=== PATIENT | female | born 1955 | race Caucasian/White ===

== ENCOUNTER 2023-04-08 09:19 | Outpatient (AMB) | payer BC, SELFPAY ==
--- NOTE | 2023-04-08 10:33 | AM.OFFWIN_ITS ---
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) Intake Note: pt is here for c.o nerve pain possible sciatica, and also congestion since last night Patient Tobacco Use Status: Never used Tobacco Allergies ibuprofen [From MOTRIN] Allergy (Mild, Verified 04/08/23 11:07) HAS 1 KIDNEY Medication List - Last Reconciled 04/08/23 by Romana Loera CNP No Known Home Meds Do you need a note to return to daycare/school/sports/work: No HPI HPI Comments History of Present Illness Details 67-year-old female [facility], complaining of upper respiratory congestion, sinus pressure, mild sore throat with post nasal drip, headache and cough x 1 week. She denies fever, chills, recent travel, exposure to sick contact, CP, SOB, abdominal pain, nausea, vomiting or changes in bowels or bladder. She also is c/o left sciatic pain x1 day. She reports left sciatic pain initially started 2 days ago with left posterior leg cramps of thigh and calf and since has localized more towards left hip. She does have hx of herniated cervical disc with anterior cervical discectomy and fusion but denies hx of know osteoarthritis. She does have a scheduled appointment with a new PCP, Jayce Coronado, [place] to establish care on 05/05/23. She denies any recent trauma, fall, or physical exercise that would have caused strained muscle. She does endorse left hip pain is sharp, tender to touch, and radiates down left leg, she denies numbness, burning or tingling to left foot. [facility] History Sensation of pressure in bladder area Social History Patient Tobacco Use Status: Never used Tobacco Review of Systems Const All systems reviewed & are unremarkable except as noted in HPI and below Physical Exam Vital Signs: Last Vital Signs Temp 98.2 F 04/08/23 10:34 Pulse 76 04/08/23 10:34 BP 126/74 04/08/23 10:34 Pulse Ox 98 04/08/23 10:34 Oxygen Delivery Method Room Air 04/08/23 10:34 Const General: healthy appearing, no acute distress and well groomed Nutritional Appearance: average body habitus Orientation/consciousness: patient oriented x3 Limitations: ambulation with walker HEENT Head: Yes normal to inspection, Yes normocephalic and Yes atraumatic Ears: hearing grossly normal bilaterally and TM's normal bilaterally General nose exam: Abnormal mucous membranes and turbinates present erythematous bilateral and Nasal discharge present purulent (yellowish green ) Mouth: moist mucous membranes Throat: Yes posterior oropharynx normal Eyes General: appearance normal, both eyes and all related structures Neck Neck: Yes no meningeal signs Chest Chest palpation & inspection: normal inspection of the chest Resp Effort & Inspection: normal respiratory effort, no cough, no respiratory distress, not tachypneic and other (hoarse ) Auscultation: clear to auscultation bilaterally, no rhonchi and no wheezes Cardio Rate: regular rate Rhythm: regular rhythm Heart sounds: S1 normal heart sound present and S2 normal heart sound present Peripheral pulses: Peripheral pulses 2+ throughout GI Inspection: Yes normal to inspection Palpation (GI): Soft to palpation, nontender and no guarding Auscultation: normal bowel sounds General: Yes no CVA tenderness Back/Spine/Pelvis Back: no CVA tenderness Cervical Spine: normal cervical lordosis and cervical ROM normal Thoracic/Lumbar Spine: thoracic and lumbar spine normal to inspection Pelvis: sciatic notch tenderness on the left Sacroiliac joints: on the left tender to palpation and by passive hyperextension of lower ext Sacrum: no ecchymosis, no erythema and no tenderness Coccyx: no swelling and no tenderness Neuro General: patient oriented x3, moves all extremities, no meningeal signs, no focal motor deficits and deep tendon reflexes 2+ bilaterally Extrem Left lower extremity: normal to inspection, normal capillary refill and hip/thigh (normal inspection to left thigh,) Details: tenderness Location: of the hip Location: laterally and anteriorly and abnormal ROM Details: pain with active ROM and pain with resistance; no swelling, no deformity and no unusual warmth; no cyanosis, no edema and joint enlargement noted Psych Appearance: well kempt Mental Status: mental status grossly normal Speech and movement: Normal speech and movement present Affect: normal affect Results Reviewed Results Reviewed: [facility] [address] [place], [place] [address] XRay Report Signed Patient: Francheska Appiah MR#: [id number] : 1955 Acct:[id number] Age/Sex: 67 / F ADM Date: 04/08/23 Loc: HO.HMGCX Attending Dr: Romana Loera CNP Ordering Physician: Romana Loera CNP Date of Service: 04/08/23 Procedure(s): XR hip LT min 2V Accession Number(s): [id number] cc: Romana Loera CNP; Deonna Wang MD~ EXAMINATION: XR HIP, LEFT , CLINICAL INFORMATION: Pain COMPARISON: None available at the time of this dictation. TECHNIQUE: Frontal and lateral views of the hip acquired. , FINDINGS: There is no evidence of acute fracture or dislocation. There are mild degenerative arthritic changes of the hip evident by sclerotic changes of the acetabular roof and narrowing of the joint space. Symphysis pubis is intact. Large soft tissue calcification at the center of the pelvis most likely calcified uterine fibroid. Adjacent pubic rami are intact. Surrounding soft tissues are unremarkable. XR/XR hip LT min 2V IMPRESSION: 1. Mild degenerative osteoarthritis. 2. No fracture. 3. Large soft tissue calcification at the center of the pelvis most likely calcified uterine fibroid. Assessment & Plan Assessment & Plan (1) Left sciatic nerve pain: Code(s): M54.32 - Sciatica, left side Plan: 67 yo female seen today in office with c/o left sciatic pain that is most prominent in left hip, and radiates down left leg. Left sciatic notch tender to touch. Left hip xray ordered and reviewed with patient, no left hip fracture, mild degenerative osteoarthritis, and large Uterine fibroid, which could be contributing to her left sciatic pain if uterine fibroid is compressing nerves. -- She will f/u with new PCP, Jayce Coronado NP on 05/05/23 for possible referral for Physical therapy, or general surgery 1. Tylenol 1000 mg, orally, every 6 hours as needed for hip pain. 2. 5 % Lidocaine patch, also available [id number] and should be apply to area of maximal tenderness as directed on the outside packaging. 3. Ibuprofen 400 mg, orally with milk or food, every 6 hours as needed for left hip pain 4. Ice to left hip pain twice a day, may alternate w/ heat therapy. Call office, or go to ER for acute worsening of symptoms. (2) Intramural uterine fibroid: Code(s): D25.1 - Intramural leiomyoma of uterus Plan: Xray reveals large uterine fibroid, this could be contributing to her left hip and left sciatic pain if fibroid is compression on nerves. She will f/u with PCP on scheduled apt 05/15/23; may need referral to urologist or general surgery. (3) Acute sinus infection: Code(s): J01.90 - Acute sinusitis, unspecified Qualifiers: Sinusitis location: maxillary Recurrence: non-recurrent Qualified Code(s): J01.00 - Acute maxillary sinusitis, unspecified Plan: 67-year-old female seen today in walk-in clinic for symptoms associated with Sinus infection; upper respiratory congestion, sinus pressure, tenderness, mild sore throat, purulent nasal discharge, headache and cough x 1 week. -- Will treat with Z-pack, 2 tabs po today, followed by 1 tab po qd x 4 days. -- Encouraged to drink plenty of fluids; maintain hydration, and get plenty of rest. -- Over the counter flonase, nasal spray for congestion, and over the counter cold medicine, such as cough drops, and throat lozenges. -- Encouraged to return to office for any worsening or unresolved symptoms. Orders: Orders XR hip LT min 2V 04/08/23 M25.552 - Pain in left hip Medications: New lidocaine 5% leave on most painful area for up to 12 hrs 1 patch topical DAILY 15 days PRN 15 ea 0RF pain, severe M54.32 - Sciatica, left side azithromycin For 250 mg dose pack: take 500 mg today (day 1), then 250 mg for 4 days (days 2-5) PO 6 tabs 0RF J32.9 - Chronic sinusitis, unspecified Coding Level of Care Code Est Pt Level 5 (57819) Diagnoses Left sciatic nerve pain M54.32 Intramural uterine fibroid D25.1 Acute non-recurrent maxillary sinusitis J01.00 Sinusitis location: maxillary Recurrence: non-recurrent Time Spent (min) 55 Comment 30 minutes spent face to face with pt 10 minutes spent coordinating care 15 minutes doc
[2023-04-08 10:34] VITALS: BP 126/74; PULSE 76; TEMP 36.8; O2SAT 98
== END 2023-04-08 11:52 | disposition home or self-care (01) ==
PROVIDERS: PCP Internal Medicine; Visit Provider Nurse Practitioner Acute Care
DX: M54.32 Sciatica, left side (principal); D25.1 Intramural leiomyoma of uterus; J01.00 Acute maxillary sinusitis, unspecified
CPT/HCPCS: 99215

== ENCOUNTER 2023-04-08 11:18 | Outpatient (REF) | payer BC, SELFPAY ==
--- NOTE | ~2023-04-08 | XR_ITS ---
EXAMINATION: XR HIP, LEFT , CLINICAL INFORMATION: Pain COMPARISON: None available at the time of this dictation. TECHNIQUE: Frontal and lateral views of the hip acquired. , FINDINGS: There is no evidence of acute fracture or dislocation. There are mild degenerative arthritic changes of the hip evident by sclerotic changes of the acetabular roof and narrowing of the joint space. Symphysis pubis is intact. Large soft tissue calcification at the center of the pelvis most likely calcified uterine fibroid. Adjacent pubic rami are intact. Surrounding soft tissues are unremarkable. XR/XR hip LT min 2V IMPRESSION: 1. Mild degenerative osteoarthritis. 2. No fracture. 3. Large soft tissue calcification at the center of the pelvis most likely calcified uterine fibroid.
== END 2023-04-08 11:19 | disposition home or self-care (01) ==
LOC: HO.HMGCX 11:18
PROVIDERS: PCP Internal Medicine; Visit Provider Nurse Practitioner Acute Care
DX: M25.552 Pain in left hip (principal)
CPT/HCPCS: 73502

== ENCOUNTER 2023-05-11 14:22 | Outpatient (AMB) | payer BC, SELFPAY ==
[2023-05-11 14:34] VITALS: BP 132/90; PULSE 79; O2SAT 97; BMI 27.1
--- NOTE | 2023-05-11 14:34 | A.OFFPC_ITS ---
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 Intake Note: Pt is here today as a New Patient to est care Allergies ibuprofen [From MOTRIN] Allergy (Mild, Verified 05/11/23 14:51) HAS 1 KIDNEY Medication List - Last Reconciled 05/11/23 by ANGI Ng No Known Home Meds Tobacco use date assessed: 05/11/23 Fall risk assessment: 1 Fall in past year Last assessed Fall Risk: 05/11/23 Dental Screening Dental Screen Date: 05/11/23 Did you have a dental visit in the last 12 months?: No Was dental information given to patient?: No HPI HPI Comments History of Present Illness Details Patient is a 67-year-old female here to establish care. Patient is due for a colonoscopy, which she gets every 5 years. Patient suggested to get colonoscopy performed under propofol, will refer. Patient's last mammogram was 02/09. She has history breast cancer left breast, and subsequent mastectomy. 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 Unable to take ibuprofen because of this. She has a past medical history significant for hyperlipidemia, thyroid nodules, cervical radiculitis, eczema of the hand, urge incontinence. [facility] Medical History (Updated 05/11/23 @ 16:20 by ANGI Ng) BRCA negative Left wrist fracture FH: mastectomy GERD (gastroesophageal reflux disease) Breast cancer Sensation of pressure in bladder area Surgical History (Updated 05/11/23 @ 16:06 by ANGI Ng) Kidney donor H/O mastectomy History of bunionectomy Family History (Updated 05/11/23 @ 14:58 by ANGI Ng) Sister Diabetes Mother Colon cancer Social History Housing: House Patient Tobacco Use Status: Former Tobacco user service: No Current occupational status: employed Cognitive needs: No Hearing needs: No Vision needs: Yes Female Reproductive History Menstrual History of abnormal mammogram: Yes Questionnaire PHQ-9 Over the last 2 weeks, how often have you been bothered by any of the following problems? 1. Little interest or pleasure in doing things: not at all 2. Feeling down, depressed, or hopeless: not at all 3. Trouble falling or staying asleep, or sleeping too much: not at all 4. Feeling tired or having little energy: not at all 5. Poor appetite or overeating: not at all 6. Feeling bad about yourself - or that you are a failure or have let yourself or your family down: not at all 7. Trouble concentrating on things, such as reading the newspaper or watching television: not at all 8. Moving or speaking so slowly that other people could have noticed. Or the opposite - being so fidgety or restless that you have been moving around a lot more than usual: not at all 9. Thoughts that you would be better off or of hurting yourself in some way: not at all Total score: 0 Depression Screening Interpretation: Negative Depression Screening Done: Yes 66933 - PHQ-9 Billing: Yes Source: Developed by Drs. Esdras Ramos, Lisa Hein, Main Simpson and colleagues, with an educational jenn from [employer]. Thrive Questionnaire Date Thrive assessed: 05/11/23 I am a: Patient What is your living situation today?: I have a steady place to live Within the past 12 months, did the food you bought not last and you didn't have the money to get more?: Never true Within the past 12 months, did you worry whether your food would run out before you got money to buy more?: Never true Do you have trouble paying for medicines?: No Do you have trouble getting transportation to medical appointments?: No Do you have trouble paying your heating and electricity bill?: No Do you have trouble taking care of your child, family member or friend?: No Do you have trouble with day-to-day activities such as bathing, preparing meals, shopping, managing finances, etc.?: No Are you currently unemployed and looking for a job?: No Are you interested in more education?: No THRIVE Score: 0 AUDIT C Alcohol Use Questionnaire (AUDIT-C) 1. How often do you have a drink containing alcohol?: 2-3 times a week 2. How many drinks containing alcohol do you have on a typical day when you are drinking?: 1 or 2 3. How often do you have six or more drinks on one occasion?: Never Total Score: 3 ABEL-7 AMB Questionnaire ABEL-7 Date ABEL - 7 assessed: 05/11/23 Feeling nervous, anxious, or on edge: 0 = Not at all Not being able to stop or control worryin = Not at all Worrying too much about different things: 0 = Not at all Trouble relaxin = Not at all Being so restless that it is hard to sit still: 0 = Not at all Becoming easily annoyed or irritable: 0 = Not at all Feeling afraid as if something awful might happen: 0 = Not at all Total ABEL-7 score (0-4 normal; 5-9 mild; 10-14 moderate; 15-21 severe): 0 Source: Developed by Drs. Esdras Ramos, Lisa Hein, Main Simpson and colleagues, with an educational jenn from [employer]. ABEL-7 Assessment Billing ABEL-7 Assessment Tool: ABEL-7 Assessment 82502 Review of Systems Const Details: Constitutional : No Weight loss, No Fever, No Chills, No Fatigue, No Malaise Cardiovascular : No Chest Pain, No SOB, No Dyspnea on Exertion, No Orthopnea, No Edema, No Palpitations Respiratory : No Cough, No Sputum, No Wheezing Gastrointestinal : No Nausea, No Vomiting, No Diarrhea, No Constipation, No abdominal Pain, No Hematochezia, No Melena, Admits occasion right sided flank pain. Genitourinary : Admits urge incontience which has gotten worse over the past year. Admits to feeling pressure in bladder. Musculoskeletal : Admits intermittent cervical pain. Skin : No Skin Lesions, No rash Neuro : Admits occasional tingling down right arm. Psych : No Anxiety/Panic, No Depression Heme/Lymph: No Bruising, No Bleeding,No Lymphadenopathy Endocrine : No Polyuria, No Polydipsia All other systems reviewed and are negative Physical exam (Primary Care) Vital Signs: Last Vital Signs Pulse 79 05/11/23 14:34 BP 132/90 H 05/11/23 14:34 Pulse Ox 97 05/11/23 14:34 Oxygen Delivery Method Room Air 05/11/23 14:34 Care Plan Goal for BP management: Patient will take blood pressure measurements at home. BMI result Body Mass Index 27.1 Tobacco/Smoking Status: Tobacco use Status Tobacco use date assessed 05/11/23 05/11/23 14:40 Patient Tobacco Use Status Former Tobacco user 05/11/23 14:40 PHQ-9: PHQ-9 Score PHQ-9: Total score 0 05/11/23 16:11 Depression Screening Interpretation: Negative Thrive Assessment: Date of Thrive Assessment Date Thrive assessed 05/11/23 05/11/23 14:40 Const Other: Appearance: Alert.? Oriented X3.? No acute distress.? Neck: Normal inspection.? Neck supple.? CVS: Normal heart rate and rhythm.? Pulses normal.? Respiratory: No respiratory distress.? Breath sounds normal.? Abdomen: Soft and nontender.? Back: No midline tenderness, no C-spine tenderness, full range of motion, no CVA tenderness bilaterally Neuro: Oriented X 3.? No motor deficit.? No sensory deficit. CN 2-12 intact Assessment and Plan Assessment & Plan (1) Cervical disc disorder: Comment: Will obtain x-ray. Will refer based on results. Patient states she has had good outcomes with steroid injections. Code(s): M50.90 - Cervical disc disorder, unspecified, unspecified cervical region (2) Incontinence: Comment: Patient states that she has developed increasing urge incontinence. Feels like pressure on her bladder. Will obtain ultrasound refer to urology. Code(s): R32 - Unspecified urinary incontinence Qualifiers: Incontinence type: urinary Urinary Incontinence type: unspecified incontinence Qualified Code(s): R32 - Unspecified urinary incontinence (3) Abdominal pain: Comment: Patient has intermittent right flank pain. Will order labs lipase, amylase, ESR. Pain increases with movement. Will order renal ultrasound. Code(s): R10.9 - Unspecified abdominal pain Qualifiers: Abdominal location: unspecified location Qualified Code(s): R10.9 - Unspecified abdominal pain Plan: Take your medications as prescribed. If you were prescribed antibiotics today, it is important that you take your medication to their entirety, do not skip any doses, do not finish them early. Follow-up with your primary care provider this week. Return to the emergency department with new or worsening symptoms. Such as fevers, chills, chest pain, shortness of breath, nausea, vomiting, dizziness, headache, vision changes, lethargy In case of emergency call 911 Plan Patient will follow-up in 4 weeks of physical exam. Orders: Orders XR cervical spine 2V Today Comprehensive Met. Panel Today Z91.89 - Other specified personal risk factors, not elsewhere classified Amylase Today R10.9 - Unspecified abdominal pain Vitamin D 25-OH (D2 and D3) Today Z13.21 - Encounter for screening for nutritional disorder Vitamin B12 Today Z13.21 - Encounter for screening for nutritional disorder TSH reflex Free T4 Today Z13.29 - Encounter for screening for other suspected endocrine disorder Lipid Panel Today R10.9 - Unspecified abdominal pain Erythrocyte Sedimentation Rate Today R10.9 - Unspecified abdominal pain XR DEXA axial skeleton Today Z78.0 - Asymptomatic menopausal state Complete Blood Count Auto Diff Today Z13.0 - Encounter for screening for diseases of the blood and blood-forming organs and certain disorders involving the immune mechanism Lipase Today R10.9 - Unspecified abdominal pain Vitamin B6 Today Z13.21 - Encounter for screening for nutritional disorder UA CC w/rflx Micro + Cult Today R32 - Unspecified urinary incontinence US bladder Today R32 - Unspecified urinary incontinence Hemoglobin A1c Today R73.03 - Prediabetes US renal RT Today R10.9 - Unspecified abdominal pain Referrals Urology Referral R32 - Unspecified urinary incontinence Coding Level of Care Code New Pt Level 3 (59388) Diagnoses Cervical disc disorder M50.90 Urinary incontinence, unspecified type R32 Incontinence type: urinary Urinary Incontinence type: unspecified incontinence Abdominal pain, unspecified abdominal location R10.9 Abdominal location: unspecified location Additional Codes ABEL-7 Assessment Billing - ABEL-7 Assessment Tool: ABEL-7 Assessment 13713 ([id number]) Time Spent (min) 35
== END 2023-05-11 15:36 | disposition home or self-care (01) ==
PROVIDERS: PCP Internal Medicine; Visit Provider Nurse Practitioner Primary Care
DX: M50.90 Cervical disc disorder, unspecified, unspecified cervical region (principal); R32 Unspecified urinary incontinence; R10.9 Unspecified abdominal pain
CPT/HCPCS: 99203; 99213

== ENCOUNTER 2023-05-30 07:03 | Outpatient (REF) | payer BC, SELFPAY ==
--- NOTE | ~2023-05-30 | XR_ITS ---
EXAMINATION: XR CERVICAL SPINE CLINICAL INFORMATION: Cervicalgia COMPARISON: None available. TECHNIQUE: 3 views of the cervical spine were obtained. FINDINGS: The density odontoid is obscured on the open-mouth view. The patient has leftward tilt of the head on the AP view. There is straightening of the usual cervical lordosis on the lateral view which may be due to muscle spasm or due to patient positioning. No fracture. Prevertebral soft tissues are within normal limits. There is mild disc space narrowing with marginal osteophyte formation at C4-C5 and C5-C6. There is fusion of C6-C7 with evidence of anterior plate. There is mild anterolisthesis of C3 respect to C4. There is mild retrolisthesis of C5 with respect to C6. XR/XR cervical spine 3V IMPRESSION: 1. Fusion of C6-C7 with anterior plate. 2. Multilevel degenerative disc disease. 3. Straightening of the usual cervical lordosis which may be due to muscle spasm or due to patient positioning.. The C6-C7 fusion may also contribute to the straightening of the cervical spine.
--- NOTE | ~2023-05-30 | US_ITS ---
EXAMINATION: US RETROPERITONEAL COMPLETE (RENAL) CLINICAL INFORMATION: Unspecified urinary incontinence. COMPARISON: Ultrasound abdomen complete 01/13/2018. TECHNIQUE: Real-time imaging of the solitary right kidney and bladder. FINDINGS: RIGHT KIDNEY: 11.0 x 5.4 x 5.0 cm (SAG x AP x TRV). The kidney is normal in size, contour, and echogenicity. Renal cortical thickness is normal. No renal calculi or hydronephrosis. 8 mm simple cyst in the medial kidney. No follow-up imaging is recommended. LEFT KIDNEY: Surgically removed (donated). BLADDER: Well distended and normal. Right ureteral jet is demonstrated; left is not. Prevoid bladder volume is 180 mL. There is no postvoid residual. ADDITIONAL FINDINGS: 11.3 x 9.6 x 5.8 cm simple appearing cystic lesion superior to the bladder of undetermined origin. US/US retroperitoneal comp IMPRESSION: The urinary bladder appears normal. No hydronephrosis. 11.3 cm simple appearing cystic lesion superior to the bladder of undetermined origin. This impresses on the bladder and may relate to the symptoms of urinary incontinence. Recommend further evaluation with pelvic ultrasound and/or CT of the abdomen and pelvis with intravenous contrast.
--- NOTE | ~2023-05-30 | MM_ITS ---
EXAMINATION: BONE DENSITOMETRY CLINICAL INDICATION: Right flank pain. Postmenopausal. COMPARISON: This is the patient's baseline examination. TECHNIQUE: Using a [employer] DXA System (software version: 13.1) manufactured by [employer], dual-energy x-ray absorptiometry was performed of the lumbar spine and left hip. The images are of good technical quality. Summary results are attached. FINDINGS: LEFT FEMUR, NECK: BMD 0.720 g/cm2, Z-score -0.9, T-score -2.3, osteopenia. LEFT FEMUR, TOTAL: BMD 0.740 g/cm2, Z-score -1.0, T-score -2.1, osteopenia. AP SPINE L1-L4: BMD 0.908 g/cm2, Z-score -0.8, T-score -2.3, osteopenia. IDENTIFIED RISK FACTORS: Menopause, history of fracture (adult). HISTORY OF FRACTURE: Wrist. MEDICATIONS: None listed. MM/XR DEXA axial skeleton IMPRESSION: 1. DIAGNOSIS: Osteopenia based on the lowest T-score value of -2.3 in the lumbar spine and femoral neck applying World Health Organization criteria. 2. 10-YEAR FRACTURE RISK PREDICTION, FRAX: Major osteoporotic fracture (clinical spine, forearm, hip or shoulder) 19.8%. Hip fracture 3.8%. 3. Treatment Recommendations: NOF guidelines recommend consideration for treatment in postmenopausal women and men age 50 and older presenting with the following: -A hip or vertebral (clinical or morphometric) fracture. -T-score less than or equal to -2.5 at the femoral neck or spine after appropriate evaluation to exclude secondary causes. -Low bone mass at the hip or spine and a 10-year fracture probability by FRAX of greater than or equal to 3% for hip fracture or greater than or equal to 20% for major osteoporotic fracture based on the [place] adapted WHO algorithm. 4. Other Recommendations: All treatment decisions require clinical judgment and consideration of individual patient factors, including patient preferences, comorbidities, previous drug use, risk factors not captured in the FRAX model (e.g. frailty, falls, vitamin D deficiency, increased bone turnover, interval significant decline in bone density) and possible under or overestimation of fracture risk by FRAX. Additional medical evaluation for secondary cause of low bone mineral density may be appropriate. FUTURE SCAN RECOMMENDATION: People with diagnosed cases of osteoporosis or at high risk for fracture should have regular bone mineral density tests. For patients eligible for Medicare, routine testing is allowed once every 2 years. The testing frequency can be increased to one year for patients who have rapidly progressing disease, those who are receiving or discontinuing medical therapy to restore bone mass, or have additional risk factors.
[2023-05-30 11:13] LABS: Appearance Urine Clear; Color Urine Yellow; Glucose Urine UA Negative (Negative); Leukocyte Esterase Urine Trace (Negative); Nitrite Urine Negative (Negative); PH 6.5 (5.0-9.0); Specific Gravity - Urine 1.025 (1.005-1.025); UMIC TRIGGER UACC YES; Urine Blood Negative (Negative); Urine Ketones Negative (Negative); Urine Protein Negative (Neg-Trace)
[2023-05-30 11:17] LABS: Bacteria Urine Trace (None Seen); Hyaline Casts Urine 0-2 /LPF (0-2); RBC Urine 0-2 /HPF (0-2); WBC Urine 0-5 /HPF (0-5)
[2023-05-30 11:28] LABS: MANUAL DIFF FLAG NO
[2023-05-30 11:31] LABS: Basophils Percent Auto 0.4 % (0-2); Eosinophils Absolute Auto 0.1 X10*3/uL (0.0-0.4); Eosinophils Percent Auto 2.8 % (0-4); Hematocrit 42.5 % (37.0-47.0); Hemoglobin 13.8 g/dl (12.0-16.0); Imm Gran Abs Auto 0.02 X10*3/uL (0.00-0.03); Imm Gran Pct Auto 0.4 % (0.0-0.4); Lymphocytes Absolute Auto 1.4 X10*3/uL (1.2-4.9); Lymphocytes Percent Auto 27.7 % (20-40); Mean Corpuscular HGB Conc 32.5 g/dl (31.0-35.0); Mean Corpuscular Hemoglobin 29.3 pg (27.0-33.0); Mean Corpuscular Volume 90.2 fL (80.0-98.0); Mean Platelet Volume 11.5 fL (9.4-12.3); Monocytes Absolute Auto 0.5 X10*3/uL (0.1-1.2); Monocytes Percent Auto 9.6 % (2-11); Neutrophils Percent Auto 59.1 % (45-73); Platelet Count 243 X10*3/uL (160-400); Red Blood Count 4.71 X10*6/uL (4.20-5.50); Red Cell Distribution Width 13.2 % (11.0-16.0)
[2023-05-30 11:44] LABS: Estimated Average Glucose 111 mg/dL; Hemoglobin A1c % 5.5 % (<6.0)
[2023-05-30 11:48] LABS: Alanine Aminotransferase 25 U/L (0-31); Albumin Level 4.1 g/dL (3.5-5.0); Alkaline Phosphatase 101 U/L (39-117); Amylase 32 U/L (28-100); Anion Gap 12 (12-20); Aspartate Amino Transferase 20 U/L (5-31); Bilirubin Total 0.7 mg/dL (0.0-1.0); Blood Urea Nitrogen 14 mg/dL (9-16); Calcium 9.1 mg/dL (8.4-10.2); Carbon Dioxide 25 mmol/L (22-29); Chloride 109 mmol/L (96-108); Cholesterol 240 mg/dL (<200); Estimated Glomerular Filt Rate > 60; Glucose Random 110 mg/dL (60-115); HDL Cholesterol 50 mg/dL (>40); LDL Cholesterol Calculated 154 mg/dL (<100); Lipase 17 U/L (8-78); Potassium 4.2 mmol/L (3.3-5.1); Sodium 142 mmol/L (135-145); Total Protein 7.4 g/dL (6.5-8.0); Triglycerides 183 mg/dL (<150)
[2023-05-30 12:09] LABS: TSH reflex Free T4 1.06 uIU/mL (0.32-4.0)
[2023-05-30 12:12] LABS: Vitamin B12 221 pg/mL (200-900)
[2023-05-30 12:15] LABS: Erythrocyte Sedimentation Rate 18 MM/HR (0-20)
[2023-06-03 13:52] LABS: Vitamin B6 5.6 ng/mL (2.1-21.7)
[2023-06-03 14:18] LABS: Vitamin D 25-OH, D2 <4 ng/mL; Vitamin D 25-OH, D3 13 ng/mL; Vitamin D 25-OH, Total 13 ng/mL (30-100)
== END 2023-05-30 07:04 | disposition home or self-care (01) ==
LOC: HO.US 07:03
PROVIDERS: PCP Nurse Practitioner Primary Care; Visit Provider Nurse Practitioner Primary Care
DX: Z13.820 Encounter for screening for osteoporosis (principal); Z13.21 Encounter for screening for nutritional disorder; Z13.29 Encounter for screening for other suspected endocrine disorder; Z13.0 Encounter for screening for diseases of the blood and blood-forming organs and certain disorders involving the immune mechanism; Z13.6 Encounter for screening for cardiovascular disorders; Z78.0 Asymptomatic menopausal state; R10.9 Unspecified abdominal pain; Z91.89 Other specified personal risk factors, not elsewhere classified; R32 Unspecified urinary incontinence; M54.2 Cervicalgia
CPT/HCPCS: 36415; 72040; 76770; 77080; 80053; 80061; 81001; 82150; 82306; 82607; 83036; 83690; 84207; 84443; 85025; 85652

== ENCOUNTER 2023-06-15 09:47 | Outpatient (AMB) | payer BC, SELFPAY ==
[2023-06-15 09:53] VITALS: BP 128/82; PULSE 83; O2SAT 97; BMI 27.7
--- NOTE | 2023-06-15 09:53 | A.OFFPC_ITS ---
Vital Signs 06/15/23 09:53 Height 5 ft 3 in Weight 156 lb 6 oz BMI 27.7 BP 128/82 Blood Pressure Location Lt brachial Position Sitting Pulse 83 Pulse Source Pulse Oximeter Pulse Oximetry (%) 97 Oxygen Delivery Method Room Air Intake Visit Reasons: PE Intake Note: Pt is here for her Annual PE Allergies ibuprofen [From MOTRIN] Allergy (Mild, Verified 06/15/23 10:38) HAS 1 KIDNEY Medication List - Last Reconciled 06/15/23 by ANGI Ng omeprazole 20 mg PO DAILY PRN Tobacco use date assessed: 06/15/23 Fall risk assessment: 1 Fall in past year Last assessed Fall Risk: 06/15/23 Dental Screening Dental Screen Date: 06/15/23 Did you have a dental visit in the last 12 months?: No Did you have a dental problem in the last 6 months where you did not have access to dental care?: No Was dental information given to patient?: No HPI HPI Comments History of Present Illness Details Patient is a 67-year-old female here today for physical exam. Patient is due for colonoscopy, referral is in. Patient recently had ultrasound of bladder for incontinence, patient has upcoming appointment with Urology in 1 month. Patient is due for Pap smear, will refer to OBGYN. Patient is due for Prevnar 20 vaccine, will give in office today. Patient recent bone density scan demonstrated osteopenia. Patient has been educated on the importance of limiting the use of PPI for calcium absorption. Patient was vitamin-D deficient on previous lab draw, been educated to start vitamin D3 2000 units per day for the next 3 months, will redraw. Patient has elevated cholesterol, does not want to start medication at this time would like to try intervention with omega-3, improved diet, and exercise. Patient has been instructed to limit alcohol intake. Will redrawn lipids in 3 months. PFSH Medical History BRCA negative Left wrist fracture FH: mastectomy GERD (gastroesophageal reflux disease) Breast cancer Sensation of pressure in bladder area Surgical History Kidney donor H/O mastectomy History of bunionectomy Family History Sister Diabetes Mother Colon cancer Social History Housing: House Patient Tobacco Use Status: Former Tobacco user e-Cigarette/Vaping Use: Never Used service: No Current occupational status: employed Cognitive needs: No Hearing needs: No Vision needs: Yes Questionnaire Thrive Questionnaire Date Thrive assessed: 05/11/23 ABEL-7 AMB Questionnaire ABEL-7 Date ABEL - 7 assessed: 05/11/23 Source: Developed by Drs. Esdras Ramos, Lisa Hein, Main Simpson and colleagues, with an educational jenn from [employer]. Review of Systems Const All systems reviewed & are unremarkable except as noted in HPI and below Card Denies chest pain and Denies dyspnea Resp Denies dyspnea Musc Reports back pain (Cervical area.) Skin/Breast Reports other (Nevi/Scap that does not seem to heal. ) Physical exam (Primary Care) Vital Signs: Last Vital Signs Pulse 83 06/15/23 09:53 BP 128/82 06/15/23 09:53 Pulse Ox 97 06/15/23 09:53 Oxygen Delivery Method Room Air 06/15/23 09:53 Care Plan Goal for BP management: Vital signs reviewed stable Next steps: Patient will continue to take medication at home. BMI result Body Mass Index 27.7 Tobacco/Smoking Status: Tobacco use Status Tobacco use date assessed 06/15/23 06/15/23 09:59 Patient Tobacco Use Status Former Tobacco user 06/15/23 09:56 e-Cigarette/Vaping Use Never Used 06/15/23 09:59 Thrive Assessment: Date of Thrive Assessment Date Thrive assessed 05/11/23 06/15/23 09:56 Const General: cooperative and no acute distress Orientation/consciousness: patient oriented x3 Limitations: no limitations HENMT Head: Yes normal to inspection Ears: TM's normal bilaterally General nose exam: Normal external nose present Mouth: Normal oral and palatal mucosa present Teeth and gingiva: dentures Throat: Yes uvula midline Eyes General: appearance normal, both eyes and all related structures Conjunctivae: conjunctivae normal Sclerae: sclerae normal Corneas: corneas normal Pupils: Equal, round and reactive pupils present EOM: EOMs intact bilaterally Direct Ophthalmoscopy: normal light reflex Neck Neck: Yes normal visual inspection, Yes full ROM and Yes no lymphadenopathy Thyroid: Thyroid normal Carotids: normal carotid upstroke Lymphatic: no lymphadenopathy noted Resp Auscultation: clear to auscultation bilaterally Cardio Rate: regular rate Rhythm: regular rhythm Heart sounds: S1 normal heart sound present and S2 normal heart sound present Peripheral pulses: Peripheral pulses 2+ throughout GI Inspection: Yes normal to inspection Auscultation: normal bowel sounds General: Yes no CVA tenderness OB/external & speculum: Deferred OB/external & speculum exam Back/Spine/Pelvis Back: no CVA tenderness Cervical Spine: cervical muscular tenderness Thoracic/Lumbar Spine: thoracic and lumbar spine normal to inspection Skin General skin exam: other (Small Nevi right shoulder. Regular borders. Slight scabbing.) Hair: normal Neuro General: patient oriented x3 and CN's II-XI intact bilaterally Cranial nerves: Yes Equal, round and reactive pupils present Cognition (Neuro): normal cognition Gait exam (Neuro): Normal gait present Motor exam (neuro): 5/5 motor strength present throughout Extrem General: Yes normal to inspection Psych Thought process: Normal thought process present Thought content: Normal thought content present Insight: Good insight present (Psych) Judgement: Good judgement present (Psych) Immunizations pneumoc 20-jamia conj-dip cr(PF) 0.5 mL IM syringe Performing Provider: ANGI Ng Performing Location: [facility] Administered by: Mireille Street CMA on 06/15/23 10:41 Dose Route Admin Location Dispensed Lot Number Expiration Date NDC High Pressure Kettle Operator 0.5 mL IM Left Deltoid 0.5 mL [id number] 06/06/24 1543-3433-98 Fliptop/Oculogica VIS Given Date VIS Provided VIS Publication Date 06/15/23 Single Vaccine 21 Eligibility Eligibility Date Funding Source Not VFC Eligible 06/15/23 Private Results Reviewed Results Reviewed: Sodium 142 135-145 mmol/L Potassium 4.2 3.3-5.1 mmol/L CL 109 H 96-108 mmol/L CO2 25 22-29 mmol/L Gap 12 12-20 BUN 14 9-16 mg/dL Creat 0.73 0.5-1.4 mg/dL EGFR > 60 NOTE: For -[place] individuals, multiply the result by 1.210. Chronic Kidney Disease: Estimated GFR < 60 mL/min/1.73m2 Severe Kidney Disease: Estimated GFR < 15 mL/min/1.73m2 Glucose, Random 110 60-115 mg/dL CA 9.1 8.4-10.2 mg/dL Total Bili 0.7 0.0-1.0 mg/dL AST (GOT) 20 5-31 U/L ALT (GPT) 25 0-31 U/L Protein, Total 7.4 6.5-8.0 g/dL Alb 4.1 3.5-5.0 g/dL Triglyceride 183 H <150 mg/dL Desirable Triglyceride: less than 150 mg/dL Borderline High Triglyceride 150-199 mg/dL High Triglyceride: 200-499 mg/dL Very High Triglyceride: greater than or equal to 5OO mg/dL Cholesterol 240 H <200 mg/dL Desirable Cholesterol: less than 200 mg/dL Borderline High Cholesterol: 200-239 mg/dL High Cholesterol: greater than 239 mg/dL LDL Calculated 154 H <100 mg/dL Desirable LDL: less than 100 mg/dL Near Optimal/Above Optimal LDL: 110-129 mg/dL Borderline High LDL: 130-159 mg/dL High LDL: 160-189 mg/dL Very High LDL: greater than or equal to 190 mg/dL HDL 50 >40 mg/dL Desirable HDL: greater than 40 mg/dL Note: This HDL assay may give artificially low results in patients with liver disease. Alk Phos 101 39-117 U/L Marlene 32 28-100 U/L Lipase 17 8-78 U/L TSH 1.06 0.32-4.0 uIU/mL Assessment and Plan Assessment & Plan (1) Encounter for routine adult physical exam with abnormal findings: Comment: Will redraw labs 3 months. Patient has Prevnar 20 immunization in office today. Patient has referral for colonoscopy, OBGYN. Code(s): Z00.01 - Encounter for general adult medical examination with abnormal findings (2) Atypical nevi: Comment: Will refer to Dermatology. Patient instructed to use [id number] hydrocortisone. Code(s): D22.9 - Melanocytic nevi, unspecified (3) Hyperlipidemia: Comment: Patient declined medication at this time. Will try to improve cholesterol with diet, exercise. Code(s): E78.5 - Hyperlipidemia, unspecified Qualifiers: Hyperlipidemia type: unspecified Qualified Code(s): E78.5 - Hyperlipidemia, unspecified (4) Vitamin D deficiency: Comment: Patient instructed to take vitamin D3, 2000 units per day for the next 3 months will redraw. Code(s): E55.9 - Vitamin D deficiency, unspecified Plan: Take your medications as prescribed. If you were prescribed antibiotics today, it is important that you take your medication to their entirety, do not skip any doses, do not finish them early. Follow-up with your primary care provider this week. Return to the emergency department with new or worsening symptoms. Such as fevers, chills, chest pain, shortness of breath, nausea, vomiting, dizziness, headache, vision changes, lethargy In case of emergency call 911 (5) Osteopenia: Comment: Patient instructed to to continue eating foods high in calcium, take vitamin D3 supplement, exercise. Limit use of PPI. Code(s): M85.80 - Other specified disorders of bone density and structure, unspecified site Qualifiers: Osteopenia location: unspecified Qualified Code(s): M85.80 - Other specified disorders of bone density and structure, unspecified site Plan Follow-up in 3-4 months Orders: Orders MM tomosynthesis screening BI 5 Months Z12.31 - Encounter for screening mammogram for malignant neoplasm of breast Complete Blood Count Auto Diff 3 Months Z13.0 - Encounter for screening for diseases of the blood and blood-forming organs and certain disorders involving the immune mechanism Comprehensive Met. Panel 3 Months Z91.89 - Other specified personal risk factors, not elsewhere classified Lipid Panel 3 Months Z13.220 - Encounter for screening for lipoid disorders Vitamin D 25-OH (D2 and D3) 3 Months Z13.21 - Encounter for screening for nutritional disorder Pneumococcal 20 Immunization Today Z23 - Encounter for immunization UA CC w/rflx Micro + Cult 3 Months Z13.89 - Encounter for screening for other disorder Referrals Gastroenterology Referral Z12.11 - Encounter for screening for malignant neoplasm of colon FINANCIAL ASSISTANCE SPECIALIST Referral Z12.4 - Encounter for screening for malignant neoplasm of cervix Dermatology Referral D22.9 - Melanocytic nevi, unspecified Coding Level of Care Code Est Pt Prev Care >65y([id number]) Diagnoses Encounter for routine adult physical exam with abnormal findings Z00.01 Atypical nevi D22.9 Hyperlipidemia, unspecified hyperlipidemia type E78.5 Hyperlipidemia type: unspecified Vitamin D deficiency E55.9 Osteopenia, unspecified location M85.80 Osteopenia location: unspecified Time Spent (min) 32
== END 2023-06-15 11:03 | disposition home or self-care (01) ==
PROVIDERS: PCP Nurse Practitioner Primary Care; Visit Provider Nurse Practitioner Primary Care
DX: Z00.00 Encounter for general adult medical examination without abnormal findings (principal); D22.9 Melanocytic nevi, unspecified; E78.5 Hyperlipidemia, unspecified; E55.9 Vitamin D deficiency, unspecified; M85.80 Other specified disorders of bone density and structure, unspecified site
CPT/HCPCS: 90471; 90677; 99397

== ENCOUNTER 2023-07-13 13:00 | Outpatient (REF) | payer BC, SELFPAY ==
[2023-07-13 16:47] LABS: Urine Cytology See Pathology rpt
== END 2023-07-13 13:01 | disposition home or self-care (01) ==
LOC: HO.LAB 13:00
PROVIDERS: PCP Nurse Practitioner Primary Care; Visit Provider Nurse Practitioner Family
DX: R31.29 Other microscopic hematuria (principal); R32 Unspecified urinary incontinence; N32.89 Other specified disorders of bladder; R39.15 Urgency of urination; R35.0 Frequency of micturition; R39.9 Unspecified symptoms and signs involving the genitourinary system; R33.9 Retention of urine, unspecified; F17.200 Nicotine dependence, unspecified, uncomplicated; Z90.5 Acquired absence of kidney
CPT/HCPCS: 51798; 81003; 88112

== ENCOUNTER 2023-07-13 13:00 | Outpatient (AMB) | payer BC, SELFPAY ==
--- NOTE | 2023-07-13 13:06 | A.OFFVIS_ITS ---
Intake Visit Reasons: urinary incontinence(set) Intake Note: New patient is present for Cyst in Bladder/Urinary Incontinence Has never tried any medications for Bladder Antibiotic Allergies: None Blood Thinners: None PVR: 624 Patient states that she has discomfort in her bladder from urinary cyst she was told she had from previous imaging she had done here She states that she feels discomfort in her bladder and states that due to cyst it is causing her urinary issues. Allergies ibuprofen [From MOTRIN] Allergy (Mild, Verified 07/13/23 17:32) HAS 1 KIDNEY Medication List - Last Reconciled 07/13/23 by ANGI Jordan- omeprazole 20 mg PO DAILY PRN HPI Comments Details: Francheska is a very pleasant 67-year-old female patient of Dr. Coronado. She has a past medical history of GERD and breast cancer. She presents to the office today as a new patient for cystic lesion noted in her bladder on recent imaging. In discussion with the patient today she reports having followed up with her PCP at which time she was discussing lower urinary symptoms she had been experiencing at which time a retroperitoneal ultrasound was ordered for further assessment evaluation. These results were reviewed with the patient today. Right kidney is normal in size, contour, and echogenicity. No renal calculi or hydronephrosis noted. 8 mm simple cyst in the medial kidney that requires no follow-up imaging per radiology report. The patient does not have a left kidney as this was surgically removed and donated to her son. The bladder is well distended and normal. Right ureteral jets are demonstrated. Pre void bladder volume is approximately 180 mL. There is no postvoid residual. 11.3 x 9.6 x 5.8 cm simple appearing cystic lesion superior to the bladder is noted. When asked she reports urinary frequency, urinary urgency, and bladder pressure. She otherwise denies hematuria, dysuria, foul smelling urine, changes to ur inary stream, flank pain, fever, and or chills. In office urinalysis results reviewed with the patient today. Microscopic hematuria noted. When asked she does report a previous smoking history of approximately 40+ years however quit 5 years ago. She otherwise denies any previous workplace chemical exposure. PVR 624 mLs. Discussed at length potential causes and affects of incomplete bladder emptying/urinary retention. It does appear patient did empty her bladder at time of ultrasound however PVR increased at today's visit. She discusses at length feeling PVR is measuring cystic lesion and not urine in the bladder. Discussed performing intermittent catheterization or in office catheterization to further assess given patient with a history of solitary kidney however patient declines at this time. BUN and creatinine tredned and as noted below: BUN:01/04 11, 06/10 14 Creatinine: 01/04 0.72, 06/10 0.73 PFSH Medical History BRCA negative Left wrist fracture FH: mastectomy GERD (gastroesophageal reflux disease) Breast cancer Sensation of pressure in bladder area Surgical History Kidney donor H/O mastectomy History of bunionectomy Family History Sister Diabetes Mother Colon cancer Social History Housing: House Patient Tobacco Use Status: Former Tobacco user e-Cigarette/Vaping Use: Never Used service: No Current occupational status: employed Cognitive needs: No Hearing needs: No Vision needs: Yes Review of Systems Const All systems reviewed & are unremarkable except as noted in HPI and below Physical Exam Const General: cooperative, healthy appearing, comfortable, no acute distress, well developed, alert and awake Orientation/consciousness: patient oriented x3 Limitations: no limitations HEENT Head: Yes normal to inspection, Yes normocephalic and Yes atraumatic Ears: hearing grossly normal bilaterally Eyes General: appearance normal, both eyes and all related structures Neck Neck: Yes normal visual inspection and Yes trachea midline Chest Chest palpation & inspection: normal inspection of the chest Resp Effort & Inspection: normal respiratory effort and able to speak in complete sentences Cardio Rate: regular rate GI Inspection: Yes normal to inspection General: Yes no CVA tenderness Back/Spine/Pelvis Back: no CVA tenderness Skin General skin exam: no rashes or lesions noted Neuro General: patient oriented x3 Extrem General: Yes normal to inspection Psych Appearance: grossly normal and well kempt Mental Status: mental status grossly normal Speech and movement: Normal speech and movement present and Clear speech present Affect: normal affect Attitude: cooperative Thought process: Normal thought process present Thought content: Normal thought content present Insight: Fair insight present (Psych) Judgement: Fair judgement present (Psych) Office Procedures Post Void Residual Post Residual Void Post Void Residual (PVR): 624 [id number] Void Residual by ultrasound Results AMB Urinalysis, Automated UA Leukoctes 0 Shahriar/uL Last Edit by Kathleen Chacko, A on 07/13/23 13:15 UA Nitrite Negative Last Edit by Kathleen Chacko, A on 07/13/23 13:15 UA Urobilinogen 0.2 mg/dL Last Edit by Kathleen Chacko, A on 07/13/23 13:1 5 UA Protein 0 mg/dL Last Edit by Kathleen Chacko, A on 07/13/23 13:15 UA pH 6.0 Last Edit by Kathleen Chacko, A on 07/13/23 13:15 UA Blood 10 Barrie/uL Last Edit by Kathleen Chacko, A on 07/13/23 13:15 UA Specific [place] 1.020 Last Edit by Kathleen Chacko, A on 07/13/23 13: 15 UA Ketone Negative Last Edit by Kathleen Chacko, A on 07/13/23 13:15 UA Bilirubin 0 mg/dL Last Edit by Kathleen Chacko, A on 07/13/23 13:15 UA Glucose 0 mg/dL Last Edit by Kathleen Chacko, A on 07/13/23 13:15 Results Reviewed Results Reviewed: Laboratory Last Values Urine pH (Auto) 6.0 07/13/23 13:13 Specific [place] (Auto) 1.020 07/13/23 13:13 Urine Protein (Auto) 0 mg/dL 07/13/23 13:13 Glucose (UA)(Auto) 0 mg/dL 07/13/23 13:13 Urine Ketones (Auto) Negative 07/13/23 13:13 Urine Blood (Auto) 10 Barrie/uL 07/13/23 13:13 Urine Nitrite (Auto) Negative 07/13/23 13:13 Urine Bilirubin (Auto) 0 mg/dL 07/13/23 13:13 Urine Urobilinogen (Auto) 0.2 mg/dL 07/13/23 13:13 Leukocyte Esterase (Auto) 0 Shahriar/uL 07/13/23 13:13 Date of Service: 05/30/23 EXAMINATION: US RETROPERITONEAL COMPLETE (RENAL) FINDINGS: RIGHT KIDNEY: 11.0 x 5.4 x 5.0 cm (SAG x AP x TRV). The kidney is normal in size, contour, and echogenicity. Renal cortical thickness is normal. No renal calculi or hydronephrosis. 8 mm simple cyst in the medial kidney. No follow-up imaging is recommended. LEFT KIDNEY: Surgically removed (donated). BLADDER: Well distended and normal. Right ureteral jet is demonstrated; left is not. Prevoid bladder volume is 180 mL. There is no postvoid residual. ADDITIONAL FINDINGS: 11.3 x 9.6 x 5.8 cm simple appearing cystic lesion superior to the bladder of undetermined origin. IMPRESSION: The urinary bladder appears normal. No hydronephrosis. 11.3 cm simple appearing cystic lesion superior to the bladder of undetermined origin. This impresses on the bladder and may relate to the symptoms of urinary incontinence. Recommend further evaluation with pelvic ultrasound and/or CT of the abdomen and pelvis with intravenous contrast. Assessment & Plan Assessment & Plan (1) Nicotine dependence: Code(s): F17.200 - Nicotine dependence, unspecified, uncomplicated Category: Medical (2) Microscopic hematuria: Code(s): R31.29 - Other microscopic hematuria Category: Medical (3) Lesion of bladder: Code(s): N32.9 - Bladder disorder, unspecified Category: Medical (4) Lower urinary tract symptoms: Code(s): R39.9 - Unspecified symptoms and signs involving the genitourinary system Category: Medical (5) Incomplete bladder emptying: Code(s): R33.9 - Retention of urine, unspecified Category: Medical (6) Solitary kidney, acquired: Code(s): Z90.5 - Acquired absence of kidney Category: Medical Plan In office urinalysis results reviewed with the patient today; as noted above; will send for urine cytology. Discussed at length potential causes for lower urinary tract symptoms patient is experiencing. Discussed at length potential causes for microscopic hematuria in the setting of nicotine dependence. Discussed further workup with CT urogram and in office cystoscopy. BUN and creatinine ordered for imaging. Will obtain CT urogram for further assessment evaluation. Discussed CIC given increased postvoid residual however patient does not feel this is an issue as she feels her main issue is cystic lesion. Discussed affects of incomplete bladder emptying/urinary retention; this was discussed at length. Discussed importance of CIC given solitary kidney; however patient declines at this time. Follow-up in office cystoscopy with lab and imaging to be completed prior; or sooner with any issues, concerns, and or questions. Orders: Orders AMB Urinalysis Automated Today Z13.9 - Encounter for screening, unspecified AMB Post Void Residual by ultrasound Today R32 - Unspecified urinary incontinence Urine Cytology Today R31.29 - Other microscopic hematuria CT urogram Today F17.200 - Nicotine dependence, unspecified, uncomplicated, N32.9 - Bladder disorder, unspecified, R31.29 - Other microscopic hematuria Blood Urea Nitrogen Today F17.200 - Nicotine dependence, unspecified, uncomplicated, N32.9 - Bladder disorder, unspecified, R31.29 - Other microscopic hematuria Creatinine Today F17.200 - Nicotine dependence, unspecified, uncomplicated, N32.9 - Bladder disorder, unspecified, R31.29 - Other microscopic hematuria Patient Instructions: The patient had an opportunity to ask questions regarding the treatment plan. All questions were answered. Physical exam, labs, and imaging were discussed and reviewed in detail. As well as risks, benefits, and discussion of treatment choices. No major barriers to understanding were identified. The patient exp ressed understanding and agreement with the above treatment plan. The patient was made aware they should contact our office by phone for worsening of their current condition, the appearance of new symptoms, or with any questions or concerns. Compliance is encouraged with any medications and follow up testing that is ordered. It is a privilege to be allowed the opportunity to participate in? your urological care.? Again, if you have any questions or concerns If you have any questions or concerns please do not hesitate to contact me. The office is [phone]. This note is constructed using voice recognition software. While every effort has been made to ensure accuracy program director cable television errors may have been included. Yours sincerely, MELLY Jordan Coding Level of Care Code New Pt Level 4 (66325) Diagnoses Nicotine dependence F17.200 Microscopic hematuria R31.29 Lesion of bladder N32.9 Lower urinary tract symptoms R39.9 Incomplete bladder emptying R33.9 Solitary kidney, acquired Z90.5 CPT Codes Post Residual Void - PVR CPT Code: 00755-Smnp Void Residual by ultrasound ([id number]) Time Spent (min) 30
== END 2023-07-13 13:46 | disposition home or self-care (01) ==
PROVIDERS: PCP Nurse Practitioner Primary Care; Visit Provider Nurse Practitioner Family
DX: F17.200 Nicotine dependence, unspecified, uncomplicated (principal); R31.29 Other microscopic hematuria; N32.9 Bladder disorder, unspecified; R39.9 Unspecified symptoms and signs involving the genitourinary system; R33.9 Retention of urine, unspecified; Z90.5 Acquired absence of kidney
CPT/HCPCS: 99204

== ENCOUNTER 2023-08-24 09:24 | Outpatient (AMB) | payer BC, SELFPAY ==
--- NOTE | 2023-08-24 09:39 | A.OFFVIS_ITS ---
Intake Visit Reasons: cysto/CT/labs Intake Note: Patient presents today for a CYSTOSCOPY Procedure: Meds: None Allergies to Antibiotic: No Known Allergies Blood Thinner: None Urinalysis test clear for Cysto? YES Disposable Uro-G HD Cystoscope Cannula: Lot: [id number] Exp: 03/21/2026 Flat Folder Required: No Accompanied by: Self / Same As Patient Allergies ibuprofen [From MOTRIN] Allergy (Mild, Verified 08/24/23 09:40) HAS 1 KIDNEY Medication List - Last Reconciled 08/24/23 by Warren Rdz MD omeprazole 20 mg PO DAILY PRN HPI Comments Details: 08/24/2023--Francheska is here for office cystoscopy. She had a renal ultrasound 05/30/2023 that noted an 11 cm pelvic mass etiology unclear. She was sent to urology for evaluation for hematuria. Past medical history breast cancer. 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 History of nicotine dependence. She was ini tially evaluated by Urology nurse practitioner on 07/13/2023, orders were placed for CT urogram which has not been completed, scheduled for 09/07/2023. Urine cytology sent on 07/13/2023, results negative for malignant cells. Office cystoscopy--no suspicious bladder lesions, bladder wall thickening. Will schedule telehealth follow-up with nurse practitioner to review CT results. 25 minutes spent in review of records pertaining to this visit and including [id number] discussion with the patient and documentation of this visit. Review of chart: 07/13/23--Francheska is a very pleasant 67-year-old female patient of Dr. Coronado. She has a past medical history of GERD and breast cancer. She presents to the office today as a new patient for cystic lesion noted in her bladder on recent imaging. In discussion with the patient today she reports having followed up with her PCP at which time she was discussing lower urinary symptoms she had been experiencing at which time a retroperitoneal ultrasound was ordered for further assessment evaluation. These results were reviewed with the patient today. Right kidney is normal in size, contour, and echogenicity. No renal calculi or hydronephrosis noted. 8 mm simple cyst in the medial kidney that requires no follow-up imaging per radiology report. The patient does not have a left kidney as this was surgically removed and donated to her son. The bladder is well distended and normal. Right ureteral jets are demonstrated. Pre void bladder volume is approximately 180 mL. There is no postvoid residual. 11.3 x 9.6 x 5.8 cm simple appearing cystic lesion superior to the bladder is noted. When asked she reports urinary frequency, urinary urgency, and bladder pressure. She otherwise denies hematuria, dysuria, foul smelling urine, changes to urinary stream, flank pain, fever, and or chills. In office urinalysis results reviewed with the patient today. Microscopic hematuria noted. When asked she does report a previous smoking history of approximately 40+ years however quit 5 years ago. She otherwise denies any previous workplace chemical exposure. PVR 624 mLs. Discussed at length potential causes and affects of inc omplete bladder emptying/urinary retention. It does appear patient did empty her bladder at time of ultrasound however PVR increased at today's visit. She discusses at length feeling PVR is measuring cystic lesion and not urine in the bladder. Discussed performing intermittent catheterization or in office catheterization to further assess given patient with a history of solitary kidney however patient declines at this time. BUN and creatinine tredned and as noted below: BUN:01/04 11, 06/10 14 Creatinine: 01/04 0.72, 06/10 0.73 PFSH Medical History BRCA negative Left wrist fracture FH: mastectomy GERD (gastroesophageal reflux disease) Breast cancer Sensation of pressure in bladder area Surgical History Kidney donor H/O mastectomy History of bunionectomy Family History Sister Diabetes Mother Colon cancer Social History Housing: House Patient Tobacco Use Status: Former Tobacco user e-Cigarette/Vaping Use: Never Used service: No Current occupational status: employed Cognitive needs: No Hearing needs: No Vision needs: Yes Review of Systems Const All systems reviewed & are unremarkable except as noted in HPI and below Reports no additional complaints Eyes Reports no additional complaints ENT Reports no additional complaints Card Reports no additional complaints Resp Reports no additional complaints GI Reports no additional complaints Reports as per HPI Musc Reports no additional complaints Skin/Breast Reports system reviewed and no additional complaints, except as documented Neuro Reports no additional complaints Psych Reports no additional complaints Endo Reports no additional complaints Archie/Lymph Reports no additional complaints Aller/Immun Reports no additional complaints Office Procedures Cystoscopy Consent Discussed risk and benefit or proposed procedure with the patient. Information consent for procedure given to the patient. Discussed technical aspects, risks, benefits and alternatives in full. Addressed all of the patient's questions and concerns regarding the procedure. The patient demonstrated knowledge and understanding. They wish to proceed with this procedure. Preparation The patient was prepped in the usual manner. A sausage tier was present and in the room. Genitalia was prepped with betadine solution in a sterile manner. Lidocaine Jelly 2% was placed into the urethra and 16Fr flexible Olympus cystoscope was inserted into the meatus after adequate lubrication. Procedure Time out per protocol performed. Bladder Inspection Bladder Inspection: The bladder was inspected in its entirety with utilization retroflexion displaying: Tumor(s): No suspicious bladder lesions visualized Trabeculation: [id number] Mucosal Erthema: NA Orifices: normal shape and position Urethra: normal Cystoscopy findings: Bladder wall thickening, no suspicious bladder lesions visualized [id number] DISPOSABLE SCOPE URO-G FLEXIBLE SCOPE Procedure code (CPT) selection complete Office Meds lidocaine HCl 2 % mucosal jelly in applicator Performing Provider: Warren Rdz MD [place] [facility] [place] [facility] Administered by: David Julian LPN on 08/24/23 09:46 Dose Route Admin Location Dispensed Lot Number Expiration Date [facility] Automation Specialist 10 mL intra-urethral 20 mL naproxen 500 mg tablet Performing Provider: Warren Rdz MD Performing Location: [facility] [place] [facility] Administered by: David Julian LPN on 08/24/23 09:46 Dose Route Admin Location Dispensed Lot Number Expiration Date [facility] Automation Specialist 500 mg PO 1 tab ciprofloxacin HCl 500 mg tablet Performing Provider: Warren Rdz MD Performing Location: [facility] [place] [facility] Administered by: David Julian LPN on 08/24/23 09:46 Dose Route Admin Location Dispensed Lot Number Expiration Date [facility] Automation Specialist 500 mg PO 1 tab Results AMB Urinalysis, Automated UA Leukoctes 15 Shahriar/uL Last Edit by BURKE Mensah on 08/24/23 09:43 UA Nitrite Negative Last Edit by BURKE Mensah on 08/24/23 09:43 UA Urobilinogen 0.2 mg/dL Last Edit by BURKE Mensah on 08/24/23 09:4 3 UA Protein 15 mg/dL Last Edit by BURKE Mensah on 08/24/23 09:43 UA pH 6.0 Last Edit by BURKE Mensah on 08/24/23 09:43 UA Blood 10 Barrie/uL Last Edit by BURKE Mensah on 08/24/23 09:43 UA Specific [place] 1.020 Last Edit by BURKE Mensah on 08/24/23 09: 43 UA Ketone Negative Last Edit by BURKE Mensah on 08/24/23 09:43 UA Bilirubin 1 mg/dL Last Edit by BURKE Mensah on 08/24/23 09:43 1+ Niki Kirkland 08/24/23 09:43 UA Glucose 0 mg/dL Last Edit by BURKE Mensah on 08/24/23 09:43 Results Reviewed Results Reviewed: Laboratory Last Values Urine pH (Auto) 6.0 08/24/23 09:40 Specific [place] (Auto) 1.020 08/24/23 09:40 Urine Protein (Auto) 15 mg/dL 08/24/23 09:40 Glucose (UA)(Auto) 0 mg/dL 08/24/23 09:40 Urine Ketones (Auto) Negative 08/24/23 09:40 Urine Blood (Auto) 10 Barrie/uL 08/24/23 09:40 Urine Nitrite (Auto) Negative 08/24/23 09:40 Urine Bilirubin (Auto) 1 mg/dL 08/24/23 09:40 Urine Urobilinogen (Auto) 0.2 mg/dL 08/24/23 09:40 Leukocyte Esterase (Auto) 15 Shahriar/uL 08/24/23 09:40 Collected: 07/13/23 Location: .LAB Received: 07/14/23 Diagnosis Urine: Negative for high-grade urothelial carcinoma. COMMENT: Examination of monolayer preparation slide shows benign urothelial cells, benign squamous cells, occasional crystals, few inflammatory cells and few red blood cells. Clinical History Microscopic hematuria Material Received Urine Gross Description Received are 10 cc of cloudy yellow fluid from which a ThinPrep slide is prepared. Date of Service: 05/30/23 EXAMINATION: US RETROPERITONEAL COMPLETE (RENAL) FINDINGS: RIGHT KIDNEY: 11.0 x 5.4 x 5.0 cm (SAG x AP x TRV). The kidney is normal in size, contour, and echogenicity. Renal cortical thickness is normal. No renal calculi or hydronephrosis. 8 mm simple cyst in the medial kidney. No follow-up imaging is recommended. LEFT KIDNEY: Surgically removed (donated). BLADDER: Well distended and normal. Right ureteral jet is demonstrated; left is not. Prevoid bladder volume is 180 mL. There is no postvoid residual. ADDITIONAL FINDINGS: 11.3 x 9.6 x 5.8 cm simple appearing cystic lesion superior to the bladder of undetermined origin. IMPRESSION: The urinary bladder appears normal. No hydronephrosis. 11.3 cm simple appearing cystic lesion superior to the bladder of undetermined origin. This impresses on the bladder and may relate to the symptoms of urinary incontinence. Recommend further evaluation with pelvic ultrasound and/or CT of the abdomen and pelvis with intravenous contrast. Assessment & Plan Assessment & Plan (1) Nicotine dependence: Code(s): F17.200 - Nicotine dependence, unspecified, uncomplicated Category: Medical (2) Microscopic hematuria: Code(s): R31.29 - Other microscopic hematuria Category: Medical (3) Lower urinary tract symptoms: Code(s): R39.9 - Unspecified symptoms and signs involving the genitourinary system Category: Medical (4) Incomplete bladder emptying: Code(s): R33.9 - Retention of urine, unspecified Category: Medical (5) Solitary kidney, acquired: Code(s): Z90.5 - Acquired absence of kidney Category: Medical Plan Schedule telehealth follow-up with nurse practitioner to review CT results. Orders: Orders AMB Urinalysis Automated Today Z13.9 - Encounter for screening, unspecified AMB Cystoscopy Today F17.200 - Nicotine dependence, unspecified, uncomplicated, R31.29 - Other microscopic hematuria, R32 - Unspecified urinary incontinence, R33.9 - Retention of urine, unspecified, R39.9 - Unspecified symptoms and signs involving the genitourinary system Patient Instructions: The patient had an opportunity to ask questions regarding treatment plan. The patient expressed understanding and agreement with the above treatment plan. The patient is aware they should contact our office by phone for worsening of their current condition or the appearance of new symptoms. Compliance is encouraged with any medications and followup testing that is ordered. It is a privilege to be allowed the opportunity to participate in the urologic care of your patient. If you have any questions or concerns regarding treatment for the above conditions please do not hesitate to contact me. The office telephone contact is [phone]. This note is constructed in part using voice recognition software. While every effort has been made to ensure accuracy tv production assistant errors may have been included. Yours sincerely, Warren Rdz MD Coding Level of Care Code Est Pt Level 3 (94449) Diagnoses Nicotine dependence F17.200 Microscopic hematuria R31.29 Lower urinary tract symptoms R39.9 Incomplete bladder emptying R33.9 Solitary kidney, acquired Z90.5 CPT Codes Cystoscopy - CPT: 50307-[id number] ([id number])
== END 2023-08-24 10:09 | disposition home or self-care (01) ==
PROVIDERS: PCP Nurse Practitioner Primary Care; Visit Provider Urology
DX: R31.29 Other microscopic hematuria (principal); R39.9 Unspecified symptoms and signs involving the genitourinary system; R33.9 Retention of urine, unspecified; F17.200 Nicotine dependence, unspecified, uncomplicated; Z90.5 Acquired absence of kidney; R32 Unspecified urinary incontinence; Z13.9 Encounter for screening, unspecified
CPT/HCPCS: 52000; 99213

== ENCOUNTER → 2023-08-24 09:24 | Outpatient (BNVA) | payer BC, SELFPAY | PROVIDERS: PCP Nurse Practitioner Primary Care; Visit Provider Urology | DX: R31.29 Other microscopic hematuria (principal); R39.9 Unspecified symptoms and signs involving the genitourinary system; R33.9 Retention of urine, unspecified; Z90.5 Acquired absence of kidney; Z87.891 Personal history of nicotine dependence | CPT/HCPCS: 52000; 81003 ==

== ENCOUNTER 2023-08-29 13:16 | Outpatient (REF) | payer BC, SELFPAY ==
[2023-09-01 00:38] LABS: HPV mRNA E6/E7 rflx Not Detected (Not Detected)
== END 2023-08-29 13:17 | disposition home or self-care (01) ==
LOC: HO.LNP 13:16
PROVIDERS: PCP Nurse Practitioner Primary Care; Visit Provider Obstetrics & Gynecology
DX: Z01.419 Encounter for gynecological examination (general) (routine) without abnormal findings (principal)
CPT/HCPCS: 87624; 88142

== ENCOUNTER 2023-08-29 13:16 | Outpatient (AMB) | payer BC, SELFPAY ==
[2023-08-29 13:48] VITALS: BP 130/86; BMI 27.3
--- NOTE | 2023-08-29 13:48 | A.OFFVIS_ITS ---
Vital Signs 08/29/23 13:48 Height 5 ft 3 in Weight 154 lb 5.177 oz BMI 27.3 BP 130/86 Intake Visit Reasons: New patient Annual Emergency Management Director Required: No Information Interpreted: non-clinical & clinical [employer]: [employer] Present (Amparo TURK) Accompanied by: Self / Same As Patient Allergies ibuprofen [From MOTRIN] Allergy (Mild, Verified 08/29/23 13:50) HAS 1 KIDNEY Post menopausal: Yes HPI Comments Details: Presenting for annual exam. No complaints. Last Pap/HPV was in 2019, no reports available according to the patient was negative Last Mammogram was in 06/10 at [facility], no reports available according to patient was negative No previous screening Colonoscopy, the patient is scheduled for her next screening colonoscopy in few weeks Last DEXA scan was done in 06/10 T-score at the spine femur level was-2.3/-2.3, FRAX risk was 19.8/3.8% PFSH Medical History BRCA negative Left wrist fracture FH: mastectomy GERD (gastroesophageal reflux disease) Breast cancer Sensation of pressure in bladder area Surgical History Kidney donor H/O mastectomy History of bunionectomy Family History Sister Diabetes Mother Colon cancer Social History Household Members: Spouse Housing: House Alcohol intake: current Alcohol intake frequency: holidays/special occasions only Patient Tobacco Use Status: Former Tobacco user Years Smoked: 40 e-Cigarette/Vaping Use: Never Used service: No Current occupational status: employed 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 Sexual orientation: Straight/Heterosexual Gender identity: Female Cognitive needs: No Hearing needs: No Vision needs: Yes Female Reproductive History Menstrual Total pregnancies: 3 Full term: 2 Number of Living Children: 2 Review of Systems Const All systems reviewed & are unremarkable except as noted in HPI and below Card Reports as per HPI Resp Reports as per HPI GI Reports as per HPI and Reports no additional complaints Reports as per HPI Physical Exam Vital Signs: BMI result Body Mass Index 27.3 Const General: cooperative, healthy appearing and comfortable Chest Chest palpation & inspection: normal inspection of the chest and normal palpation of entire chest wall Breast/axilla inspection: normal inspection of the breasts and normal inspection of the axillae Breast/axilla palpation: normal palpation of the breasts, normal palpation of the axillae and no axillary lymphadenopathy Resp Effort & Inspection: normal respiratory effort Auscultation: clear to auscultation bilaterally Percussion: percussion normal Cardio Palpation: normal PMI Rate: regular rate Rhythm: regular rhythm Heart sounds: no murmurs and no rubs Peripheral pulses: Peripheral pulses 2+ throughout GI Inspection: Yes normal to inspection Palpation (GI): Soft to palpation, nontender, no guarding, not rigid and No hepatosplenomegaly present Percussion: Yes normal to percussion Auscultation: normal bowel sounds Rectal Exam - Female: deferred General: Yes bladder normal to palpation External Female Exam: No lesion Speculum Exam - Vagina: normal appearance of the vagina, normal palpation, normal vaginal discharge and not erythematous Speculum Exam - Cervix: normal appearance of the cervix and normal palpation Bimanual exam- vagina & uterus: normal bimanual exam, normal palpation, bladder normal to palpation, consistency normal, normal palpation and enlarged Bimanual Exam- Adnexa, other: normal adnexae, no masses and no tenderness Assessment & Plan Assessment & Plan (1) Well woman exam: Code(s): Z01.419 - Encounter for gynecological examination (general) (routine) without abnormal findings Category: Medical Plan: Co testing done. Counseled the patient about the recommended dietary allowance of 1200 mg of Calcium & 800 IU of vitamin D. Instructions given the patient to schedule next screening Mammogram in 06/11. The patient is scheduled for her next screening colonoscopy done. The patient was instructed to perform monthly self-breast exams and to schedule a 2 week DEXA scan follow-up appointment and an annual exam in a year; All questions answered and the patient verbalized understanding. (2) Enlarged uterus: Code(s): N85.2 - Hypertrophy of uterus Category: Medical Plan: Discussed with the patient the finding on pelvic exam, enlarged uterus, will order pelvic ultrasound. Instructions given the patient to schedule pelvic ultrasound and a follow-up appointment. All questions answered, the patient verbalized understanding (3) At high risk for fracture: Code(s): Z91.89 - Other specified personal risk factors, not elsewhere classified Category: Medical Plan: Discussed with the patient the DEXA results and FRAX risk. Discussed with the patient all the options for therapeutic treatment including mechanism of actions, risks and benefits of Bisphosphonates (benefits=osteoporosis prevention; Risks=GERD, osteonecrosis of jaw), Raloxifene, (benefits=osteoporosis prevention and breast ca risk reduction; Risks=DVT), Forteo. The patient decided to go ahead with Fosamax so instructions given to the pt on how to take the med: NPO x 30 minutes, large amount of water , stay upright x 30 minutes, inform her dentist of alendronate intake in case invasive dental work. Also Caltrate+D 600 mg x2/day was recommended to the patient. Orders: Orders US pelvic and transvaginal Today N85.2 - Hypertrophy of uterus Medications: New alendronate 70 mg PO QWEEK 14 tabs 3RF Coding Level of Care Code New Pt Prev Care >65yr (02873) Diagnoses Well woman exam Z01.419 Enlarged uterus N85.2 At high risk for fracture Z91.89
== END 2023-08-29 14:19 | disposition home or self-care (01) ==
PROVIDERS: PCP Nurse Practitioner Primary Care; Visit Provider Obstetrics & Gynecology
DX: Z01.419 Encounter for gynecological examination (general) (routine) without abnormal findings (principal); N85.2 Hypertrophy of uterus; Z91.89 Other specified personal risk factors, not elsewhere classified
CPT/HCPCS: 99387

== ENCOUNTER 2023-09-06 12:57 | Outpatient (REF) | payer BC, SELFPAY ==
--- NOTE | ~2023-09-06 | US_ITS ---
EXAMINATION: US PELVIS COMPLETE CLINICAL INFORMATION: Uterine hypertrophy; follow-up 11.3 cm simple left pelvic cystic lesion; postmenopausal patient. COMPARISON: None. TECHNIQUE: Transabdominal and transvaginal imaging were performed. FINDINGS: The uterus is of normal size and echogenicity measuring 6.4 x 4.2 x 5.8 cm. The uterus is retroverted and retroflexed. A irregular, thickened endometrium is identified with cystic change, measuring 1.6 cm in thickness. FIBROIDS: There is 1 fibroid seen. 1. Location: Anterior body, myometrial. Size: 4.3 x 3.5 x 5.2 cm. Fibroid characteristics: Peripherally calcified, with shadowing. Both ovaries are nonvisualized. There is no pelvic free fluid. In the right adnexal region superior to the uterus, an 11.5 x 10.5 x 10.6 cm anechoic cyst is seen, with peripheral vascularity. US/US pelvic and transvaginal IMPRESSION: 1. Corresponding with the abdominal ultrasound findings, an 11.8 cm simple appearing cystic lesion is redemonstrated in the right adnexal region superior to the uterus and bladder. It is uncertain as to whether this is of ovarian origin; however, the possibility of an ovarian neoplasm is raised. Recommend further evaluation with CT or MRI of the pelvis. Gynecology and evaluation management are recommended. 2. There is postmenopausal endometrial stripe thickening to 1.6 cm, with irregularity and cystic change. Gynecology evaluation management are recommended, with consideration for tissue sampling, if clinically indicated. 3. A uterine fibroid is seen. 4. The ovaries are nonvisualized.
== END 2023-09-06 12:58 | disposition home or self-care (01) ==
LOC: HO.HMGCX 12:57
PROVIDERS: PCP Nurse Practitioner Primary Care; Visit Provider Obstetrics & Gynecology
DX: N85.2 Hypertrophy of uterus (principal)
CPT/HCPCS: 76830; 76856

== ENCOUNTER 2023-09-07 09:38 | Outpatient (REF) | payer BC, SELFPAY ==
--- NOTE | ~2023-09-07 | CT_ITS ---
EXAMINATION: CT ABDOMEN AND PELVIS WITHOUT AND WITH CONTRAST CLINICAL INFORMATION: Microscopic hematuria COMPARISON: None available. TECHNIQUE: Noncontrast CT of the abdomen and pelvis is performed followed by split bolus contrast-enhanced images using 85 mL Omnipaque 350 contrast.? Postcontrast imaging is performed during the combined nephrogram and excretion phase. Sagittal and coronal reformatted images were obtained on the technologist's workstation for both the precontrast and postcontrast phases. This CT examination was performed using dose optimization techniques as appropriate, variously including the following: *Automated exposure control *Adjustment of mA and/or kV according to patient size (this includes techniques or standardized protocols for targeted exams where dose is matched to indication/reason for exam; i.e. extremities or head) *Use of iterative reconstruction technique DLP: 888 mGy-cm FINDINGS: LUNG BASES: The visualized lung bases are unremarkable. LIVER, GALLBLADDER, AND BILIARY TREE: Liver is of low attenuation due to hepatic steatosis without intrahepatic masses, ductal dilatation is seen. The gallbladder is unremarkable with no evidence of radiopaque gallstones, gallbladder wall thickening, or obvious pericholecystic inflammatory changes. PANCREAS: Unremarkable. SPLEEN: Unremarkable. ADRENAL GLANDS: Unremarkable. KIDNEYS AND URETERS: Left kidney is surgically absent. Right kidney revealed few small parenchymal cysts but no hydroureteronephrosis or nephrolithiasis. BLADDER: Unremarkable. GASTROINTESTINAL TRACT: The small bowel are unremarkable. There are changes of colonic diverticulosis without diverticulitis mostly in the sigmoid colon and descending colon. The appendix is unremarkable. ABDOMINAL WALL: No significant hernia is appreciated. LYMPH NODES: Normal. VASCULAR: Unremarkable. PELVIC VISCERA: There is large cyst in right adnexa measured 10.0 x 9.7 x 10.4 cm without nodularity. There is large peripherally calcified mass in the uterus most likely uterine fibroid, measured 4.3 x 3.8 x 4.1 cm. There is no fluid in cul-de-sac OSSEUS STRUCTURES: Unremarkable. CT/CT urogram IMPRESSION: 1. Status post left nephrectomy, donor kidney. 2. No evidence of nephrolithiasis or hydroureteronephrosis. 3. Large right adnexal cyst and uterine fibroid. 4. Hepatic steatosis. 5. Diverticulosis without diverticulitis.
[2023-09-07 10:27] LABS: Blood Urea Nitrogen 13 mg/dL (9-16); Estimated Glomerular Filt Rate > 60
[2023-09-07] MEDS: iohexoL 350 MG/ML 100 ML INFUS..BTL IV (12:26)
== END 2023-09-07 09:39 | disposition home or self-care (01) ==
LOC: HO.CT 09:38
PROVIDERS: PCP Nurse Practitioner Primary Care; Visit Provider Nurse Practitioner Family
DX: F17.200 Nicotine dependence, unspecified, uncomplicated (principal); R31.29 Other microscopic hematuria; N32.9 Bladder disorder, unspecified
CPT/HCPCS: 36415; 74178; 82565; 84520; Q9967

== ENCOUNTER 2023-09-08 13:50 | Outpatient (REF) | payer BC, SELFPAY | END 2023-09-08 13:51 | disposition home or self-care (01) | LOC: HO.LNP 13:50 | PROVIDERS: PCP Nurse Practitioner Primary Care; Visit Provider Obstetrics & Gynecology | DX: R93.89 Abnormal findings on diagnostic imaging of other specified body structures (principal); R19.00 Intra-abdominal and pelvic swelling, mass and lump, unspecified site; D25.9 Leiomyoma of uterus, unspecified | CPT/HCPCS: 58100; 88305 ==

== ENCOUNTER 2023-09-08 13:50 | Outpatient (AMB) | payer BC, SELFPAY ==
--- NOTE | 2023-09-08 14:10 | A.OFFVIS_ITS ---
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 The patient is doing well with no complaints. No history of vaginal bleeding. Last co testing still pending, screening mammogram ordered The uterus is of normal size and echogenicity measuring 6.4 x 4.2 x 5.8 cm. The uterus is retroverted and retroflexed. A irregular, thickened endometrium is identified with cystic change, measuring 1.6 cm in thickness. FIBROIDS: There is 1 fibroid seen. 1. Location: Anterior body, myometrial. Size: 4.3 x 3.5 x 5.2 cm. Fibroid characteristics: Peripherally calcified, with shadowing. Both ovaries are nonvisualized. There is no pelvic free fluid. In the right adnexal region superior to the uterus, an 11.5 x 10.5 x 10.6 cm anechoic cyst is seen, with peripheral vascularity. 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 Sexual orientation: Straight/Heterosexual Gender identity: Female Cognitive needs: No Hearing needs: No Vision needs: Yes Review of Systems Const All systems reviewed & are unremarkable except as noted in HPI and below Reports as per HPI and Reports no additional complaints GI Reports no additional complaints Reports no additional complaints Office Procedures Endometrial Biopsy Details: The patient was counseled regarding the indication and benefits of endometrial sampling to rule out endometrial pathology including not limited to endometrial hyperplasia or endometrial cancer and others; The alternatives (Either do nothing vs. hysteroscopy D&C) & the risks were discussed with the patient including but not limited: pain, uterine perforation, bleeding, infection, possible injury to bladder, bowel, ureter, possible need for blood transfusion with all its possible risks. The patient verbalized understanding all questions answered and signed consent. The patient was placed into the dorsal lithotomy position; a speculum was inserted in the vagina. Using aseptic technique for the procedure, the cervix was cleansed with Betadine. The anterior lip of the cervix was grasped with a single tooth tenaculum. The uterus was sounded to 7 cm with a 4 mm Pipelle was used. Tissues samples were obtained and placed in formalin, in a patient labeled container and sent to the pathology department. At the end of the procedure, there was minimal bleeding noted The patient tolerated the procedure well and was discharged in good condition with the following instructions: Nothing in the vagina until the bleeding stops. No sex until the bleeding stops, to call if any of the following occurs: fever (>100.4), flu-like symptoms, abdominal pain, heavy bleeding, four smelling vaginal discharge. The patient was instructed to schedule a Follow up appointment in 2 weeks to discuss pathology results of the biopsy and treatment options. This note was generated with a voice recognition program. Some errors may have been overlooked during the review of this note. Sometimes these errors may affect the content or meaning of a given sentence. [id number] Biopsy Assessment & Plan Assessment & Plan (1) Pelvic mass: Code(s): R19.00 - Intra-abdominal and pelvic swelling, mass and lump, unspecified site Category: Medical Plan: Discussed with the patient the results of the ultrasound showing anechoic cystic mass with peripheral vascularity of unknown origin, will order CT scan of abdomen and pelvis, ovarian cancer tumor markers including CA 125, CEA and CA 19-9. Instructions given the patient to schedule the scan follow-up appointment within 2 weeks. (2) Thickened endometrium: Code(s): R93.89 - Abnormal findings on diagnostic imaging of other specified body structures Category: Medical Plan: Discussed with the patient endometrial thickness above 4 mm in menopause , the differential diagnosis of a thickened endometrium includes but not limited to endometrial polyp, hyperplasia or carcinoma. Explained to the patient that endometrial each thickness is less predictive of endometrial neoplasia in asymptomatic patients, i.e. those without postmenopausal uterine bleeding. The sensitivity and specificity for detecting endometrial carcinoma at an endometrial thickness of >= 5mm was 83 and 72 percent, respectively; this is lower than in patients with bleeding. Studies have shown that postmenopausal patients without uterine bleeding who had an endometrial thickness >11 mm had an endometrial carcinoma risk of 6.7 percent; this risk is similar to postmenopausal patients with bleeding and an endometrial thickness >5 mm. Recommended endometrial sampling to rule endometrial pathology via either office endometrial biopsy or diagnostic hysteroscopy/D&C with possible polypectomy/myomectomy. All pros and cons, risks and benefits of each approach were discussed with the patient, the patient decided to proceed with endometrial biopsy. EMB done, see procedure note.. All questions answered, the patient verbalized (3) Uterine myoma: Code(s): D25.9 - Leiomyoma of uterus, unspecified Category: Medical Plan: Discussed with the patient the findings on pelvic ultrasound & the risk of myosarcoma; discussed with the patient the options of treatment including expectant management versus hysterectomy; the pros and cons, risks benefits of each approach were discussed with the patient including the fact that in cases of myosarcoma, surgical treatment can lead to early diagnosis and positively affects the prognosis; after further discussion, the patient decided to think about it and get back to me next visit. Orders: Orders Carcinoembryonic Antigen Today N83.299 - Other ovarian cyst, unspecified side CT abdomen pelvis w IV con Today N83.299 - Other ovarian cyst, unspecified side CA-125 Today N83.299 - Other ovarian cyst, unspecified side Carbohydrate Antigen 19-9 Today N83.299 - Other ovarian cyst, unspecified side Surgical Today R93.89 - Abnormal findings on diagnostic imaging of other specified body structures AMB Endometrial Biopsy Today R93.89 - Abnormal findings on diagnostic imaging of other specified body structures Coding Level of Care Code Est Pt Level 3 (71711) Procedure Only Diagnoses Pelvic mass R19.00 Thickened endometrium R93.89 Uterine myoma D25.9 CPT Codes Endometrial Biopsy - CPT: 84475-[id number] Biopsy ([id number])
[2023-09-08 14:14] VITALS: BP 130/82; BMI 27.3
== END 2023-09-08 14:33 | disposition home or self-care (01) ==
LOC: HO.HWS 13:50
PROVIDERS: PCP Nurse Practitioner Primary Care; Visit Provider Obstetrics & Gynecology
DX: R19.00 Intra-abdominal and pelvic swelling, mass and lump, unspecified site (principal); R93.89 Abnormal findings on diagnostic imaging of other specified body structures; D25.9 Leiomyoma of uterus, unspecified
CPT/HCPCS: 58100; 99213

== ENCOUNTER 2023-09-08 14:39 | Outpatient (REF) | payer BC, SELFPAY ==
[2023-09-08 16:16] LABS: Blood Urea Nitrogen 14 mg/dL (9-16); Estimated Glomerular Filt Rate > 60
[2023-09-09 08:44] LABS: Carbohydrate Antigen 19-9 12 U/mL (<34)
[2023-09-09 09:19] LABS: CA-125 12 U/mL (<35)
== END 2023-09-08 14:40 | disposition home or self-care (01) ==
LOC: HO.LAB 14:39
PROVIDERS: PCP Nurse Practitioner Primary Care; Visit Provider Obstetrics & Gynecology
DX: N83.299 Other ovarian cyst, unspecified side (principal); R93.89 Abnormal findings on diagnostic imaging of other specified body structures
CPT/HCPCS: 36415; 82378; 82565; 84520; 86301; 86304

== ENCOUNTER 2023-09-19 08:51 | Outpatient (AMB) | payer BC, SELFPAY ==
--- NOTE | 2023-09-19 08:46 | A.OFFVIS_ITS ---
Intake Visit Reasons: CT results(set) Allergies ibuprofen [From MOTRIN] Allergy (Mild, Verified 09/19/23 16:30) HAS 1 KIDNEY Medication List - Last Reconciled 09/19/23 by JOLENE JordanP- alendronate 70 mg PO QWEEK cholecalciferol (vitamin D3) 25 mcg PO DAILY omeprazole 20 mg PO DAILY PRN HPI Comments Details: Francheska is a very pleasant 67-year-old female patient of Dr. Coronado. She has a past medical history of GERD and breast cancer. She is being followed up on today via telehealth. Of note, patient was seen approximately 3 months ago as a new patient for question of a cystic lesion noted in her bladder on retroperitoneal ultrasound at which time her urine was sent out for urine cytology and in office cystoscopy was performed during last office visit with Dr. Lawson Wild 09/10 that noted no suspicious bladder lesions, and bladder wall thickening. Patient was also noted to have microscopic hematuria on in office urinalysis with a history of nicotine dependence for over 40 years however quit 5 years ago. During last office visit CT urogram had not yet been completed therefore recommendation was made for follow-up for review. These results were reviewed with the patient today. Left kidney is surgically absent. Right kidney with no hydronephrosis and or renal calculi noted. The bladder is unremarkable. Left right adnexal cyst in uterine fibroid noted. She discusses following up with Dr. Malone and having recent pelvic ultrasound that noted pelvic mass with etiology that is unclear. She discusses she is scheduled for follow-up to review plan of care. When asked she does report noting lower urinary bladder pressure. However discussed potential causes for lower urinary bladder pressure given cystic/pelvic mass. She discusses having had biopsies with complementary health therapists all that have been within normal limits. She otherwise denies hematuria, dysuria, foul smelling urine, changes to urinary stream, flank pain, fever, and or chills. BUN and creatinine trended and as noted below: BUN:01/04 11, 06/10 14, 09/10 13, 09/10 14 Creatinine: 01/04 0.72, 06/10 0.73, 09/10 0.76, 09/10 0.78 PFSH Medical History BRCA negative Left wrist fracture FH: mastectomy GERD (gastroesophageal reflux disease) Breast cancer Sensation of pressure in bladder area Surgical History Kidney donor H/O mastectomy History of bunionectomy Family History Sister Diabetes Mother Colon cancer Social History Household Members: Spouse Housing: House Alcohol intake: current Alcohol intake frequency: holidays/special occasions only Patient Tobacco Use Status: Former Tobacco user Years Smoked: 40 e-Cigarette/Vaping Use: Never Used service: No Current occupational status: employed 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 Sexual orientation: Straight/Heterosexual Gender identity: Female Cognitive needs: No Hearing needs: No Vision needs: Yes Review of Systems Const All systems reviewed & are unremarkable except as noted in HPI and below Physical Exam Const General: cooperative, healthy appearing, comfortable, no acute distress, well developed, alert and awake Orientation/consciousness: patient oriented x3 Limitations: no limitations HEENT Head: Yes normal to inspection, Yes normocephalic and Yes atraumatic Ears: hearing grossly normal bilaterally Eyes General: appearance normal, both eyes and all related structures Neck Neck: Yes normal visual inspection and Yes trachea midline Chest Chest palpation & inspection: normal inspection of the chest Resp Effort & Inspection: normal respiratory effort and able to speak in complete sentences Cardio Rate: regular rate GI Inspection: Yes normal to inspection General: Yes no CVA tenderness Back/Spine/Pelvis Back: no CVA tenderness Skin General skin exam: no rashes or lesions noted Neuro General: patient oriented x3 Extrem General: Yes normal to inspection Psych Appearance: grossly normal and well kempt Mental Status: mental status grossly normal Speech and movement: Normal speech and movement present and Clear speech present Affect: normal affect Attitude: cooperative Thought process: Normal thought process present Thought content: Normal thought content present Insight: Fair insight present (Psych) Judgement: Fair judgement present (Psych) Telehealth Telehealth Telehealth Platform: Telephone Location of provider rendering services: practice address Location of patient: address on file Patient Identification confirmed using: Name, : Yes Telehealth method: voice only Patient verbally consented to treatment: Yes Patient verbally consented to billing insurance company: Yes Patient informed of any privacy concerns related to visit: Yes Minutes spent on Phone/Video with Pt.: 20 Results Reviewed Results Reviewed: Date of Service: 09/07/23 EXAMINATION: CT ABDOMEN AND PELVIS WITHOUT AND WITH CONTRAST FINDINGS: LUNG BASES: The visualized lung bases are unremarkable. LIVER, GALLBLADDER, AND BILIARY TREE: Liver is of low attenuation due to hepatic steatosis without intrahepatic masses, ductal dilatation is seen. The gallbladder is unremarkable with no evidence of radiopaque gallstones, gallbladder wall thickening, or obvious pericholecystic inflammatory changes. PANCREAS: Unremarkable. SPLEEN: Unremarkable. ADRENAL GLANDS: Unremarkable. KIDNEYS AND URETERS: Left kidney is surgically absent. Right kidney revealed few small parenchymal cysts but no hydroureteronephrosis or nephrolithiasis. BLADDER: Unremarkable. GASTROINTESTINAL TRACT: The small bowel are unremarkable. There are changes of colonic diverticulosis without diverticulitis mostly in the sigmoid colon and descending colon. The appendix is unremarkable. ABDOMINAL WALL: No significant hernia is appreciated. LYMPH NODES: Normal. VASCULAR: Unremarkable. PELVIC VISCERA: There is large cyst in right adnexa measured 10.0 x 9.7 x 10.4 cm without nodularity. There is large peripherally calcified mass in the uterus most likely uterine fibroid, measured 4.3 x 3.8 x 4.1 cm. There is no fluid in cul-de-sac OSSEUS STRUCTURES: Unremarkable. IMPRESSION: 1. Status post left nephrectomy, donor kidney. 2. No evidence of nephrolithiasis or hydroureteronephrosis. 3. Large right adnexal cyst and uterine fibroid. 4. Hepatic steatosis. 5. Diverticulosis without diverticulitis. Assessment & Plan Assessment & Plan (1) Pelvic mass: Code(s): R19.00 - Intra-abdominal and pelvic swelling, mass and lump, unspecified site Category: Medical (2) Solitary kidney, acquired: Code(s): Z90.5 - Acquired absence of kidney Category: Medical (3) Incomplete bladder emptying: Code(s): R33.9 - Retention of urine, unspecified Category: Medical (4) Lower urinary tract symptoms: Code(s): R39.9 - Unspecified symptoms and signs involving the genitourinary system Category: Medical (5) Microscopic hematuria: Code(s): R31.29 - Other microscopic hematuria Category: Medical (6) Nicotine dependence: Code(s): F17.200 - Nicotine dependence, unspecified, uncomplicated Category: Medical Plan Recent CT results reviewed with the patient today; as noted above. Follow-up with [facility] for further management of uterine fibroid. Discussed potential causes for lower urinary tract symptoms patient is experiencing. Patient will follow-up with complementary health therapists and if lower urinary tract symptoms continue will follow-up for further assessment and evaluation. Discussed incomplete bladder emptying in management for incomplete bladder emptying at this time with [facility] however patient declines. Discussed follow-up in 3 months, 6 months or a year however patient would like to follow-up p.r.n. Patient Instructions: The patient had an opportunity to ask questions regarding the treatment plan. All questions were answered. Physical exam, labs, and imaging were discussed and reviewed in detail. As well as risks, benefits, and discussion of treatment choices. No major barriers to understanding were identified. The patient expressed understanding and agreement with the above treatment plan. The patient was made aware they should contact our office by phone for worsening of their current condition, the appearance of new symptoms, or with any questions or concerns. Compliance is encouraged with any medications and follow up testing that is ordered. It is a privilege to be allowed the opportunity to participate in? your urological care.? Again, if you have any questions or concerns If you have any questions or concerns please do not hesitate to contact me. The office is [phone]. This note is constructed using voice recognition software. While every effort has been made to ensure accuracy card painter errors may have been included. Yours sincerely, MELLY Jordan Coding Level of Care Code Tele Est Pt Level 3 (49558) Diagnoses Pelvic mass R19.00 Solitary kidney, acquired Z90.5 Incomplete bladder emptying R33.9 Lower urinary tract symptoms R39.9 Microscopic hematuria R31.29 Nicotine dependence F17.200
== END 2023-09-19 09:45 | disposition home or self-care (01) ==
LOC: HO.HUSH 08:51
PROVIDERS: PCP Nurse Practitioner Primary Care; Visit Provider Nurse Practitioner Family
DX: R19.00 Intra-abdominal and pelvic swelling, mass and lump, unspecified site (principal); Z90.5 Acquired absence of kidney; R33.9 Retention of urine, unspecified; R39.9 Unspecified symptoms and signs involving the genitourinary system; R31.29 Other microscopic hematuria; F17.200 Nicotine dependence, unspecified, uncomplicated
CPT/HCPCS: 99442

== ENCOUNTER → 2023-09-19 08:51 | Outpatient (BNVA) | payer BC, SELFPAY | PROVIDERS: PCP Nurse Practitioner Primary Care; Visit Provider Nurse Practitioner Family ==

== ENCOUNTER 2023-09-20 15:33 | Outpatient (AMB) | payer BC, SELFPAY ==
--- NOTE | 2023-09-20 15:39 | MHC.OFFVIS ---
Vital Signs 09/20/23 15:46 Height 5 ft 3 in Weight 159 lb 2.78 oz BMI 28.2 BP 138/64 Blood Pressure Location Lt brachial Position Sitting Pulse 84 Pulse Source Pulse Oximeter Pulse Oximetry (%) 95 Oxygen Delivery Method Room Air Intake Visit Reasons: Screening Colonoscopy Intake Note: Francheska presents in office today for a scheduled colo s/p scrn. CC: According to the referral, this s/p should be routine in nature. Pt reports that this is a recall colo. Their last procedure was approximately 3 years ago per their knowledge. Pt believes that they previously had some adenomas removed which is why they recommended 3 year Recall. Pt is interested in alternative prep options as they have had a negative experience with the gallon prep in the past. 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 female with past medical history of uterine myoma, thickened endometrium, pelvic mass, lesion of a bladder, osteopenia, vitamin D deficiency, hyperlipidemia, breast CA 33 years ago of right breast, status post mastectomy, colitis in 2020 is here today for pre colonoscopy screening.? Patient was sent to us by her PCP.? Last colonoscopy in 2018.? Patient denies any gastrointestinal symptoms in the past or at present.? Personal or family history of colon polyps (self), patient is mother was diagnosed with CRC.? Denies history of difficulty with sedation or anesthesia in the past.? Negative for history of sleep apnea.? Denies any history of cardiac, renal, pulmonary, or hepatic disease.?? No history of infectious? diseases like hepatitis A, B, C, HIV or tuberculosis.? Patient is not on any anticoagulation [facility] Medical History BRCA negative Left wrist fracture FH: mastectomy GERD (gastroesophageal reflux disease) Breast cancer Sensation of pressure in bladder area Surgical History Hx of spinal surgery H/O colonoscopy (~2020) Kidney donor H/O mastectomy History of bunionectomy Family History Sister Diabetes Mother Colon cancer Social History Household Members: Spouse Housing: House Alcohol intake: current Alcohol intake frequency: holidays/special occasions only Patient Tobacco Use Status: Former Tobacco user Years Smoked: 40 e-Cigarette/Vaping Use: Never Used service: No Current occupational status: employed 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 Sexual orientation: Straight/Heterosexual Gender identity: Female Cognitive needs: No Hearing needs: No Vision needs: Yes Review of Systems Const Denies weight gain and Denies weight loss ENT Reports no additional complaints, Denies dysphagia and Denies odynophagia Card Reports no additional complaints Resp Reports no additional complaints GI Denies abdominal pain, Denies belching, Denies melena, Denies bloating, Denies change in bowel habits, Denies dysphagia, Denies excessive flatus, Denies dyspepsia, Denies heartburn, Denies diarrhea, Denies loose stools, Denies nausea, Denies odynophagia and Denies vomiting Musc Reports no additional complaints Neuro Reports no additional complaints Psych Reports no additional complaints Endo Reports no additional complaints Physical Exam Vital Signs: Last Vital Signs Pulse 84 09/20/23 15:46 BP 138/64 09/20/23 15:46 Pulse Ox 95 09/20/23 15:46 Oxygen Delivery Method Room Air 09/20/23 15:46 BMI result Body Mass Index 28.2 Const General: healthy appearing, no acute distress and well developed Nutritional Appearance: well nourished Orientation/consciousness: patient oriented x3 Resp Effort & Inspection: normal respiratory effort, able to speak in complete sentences, no tracheal deviation and symmetric chest movement Auscultation: clear to auscultation bilaterally Cardio Jugular venous distension: no JVD Rate: regular rate GI Inspection: Yes normal to inspection and No distended Palpation (GI): Soft to palpation, not firm, nontender and No hepatosplenomegaly present Auscultation: normal bowel sounds General: Yes no CVA tenderness Back/Spine/Pelvis Back: no CVA tenderness Skin General skin exam: elasticity normal, turgor normal and dry skin Neuro General: patient oriented x3 Psych Appearance: grossly normal Mental Status: mental status grossly normal Speech and movement: Normal speech and movement present Affect: normal affect Assessment & Plan Assessment & Plan (1) Screen for colon cancer: Code(s): Z12.11 - Encounter for screening for malignant neoplasm of colon Plan Patient denies any GI, cardiac or respiratory symptoms.? Denies any issues with anesthesia in the past.? Denies any history of sleep apnea.? No history infectious diseases in the past or present.? Not on any anticoagulation therapy.? Family history of CRC. History of polyps on previous colonoscopy. Last colonoscopy showed no polyps.? Patient denies melena, hematochezia, unintentional weight loss or ribbon like stools.? Discussed at length the pre-procedure,? prep, diet & medications as well as what to expect prior, during and after the procedure.?? Stressed the importance of good bowel prep.? Recommended the use of Vaseline or Calmoseptine OTC & baby wipes with bowel movements to promote comfort.? ?Patient verbalizes understanding and agrees to plan of care.? She was given the opportunity to ask questions and all questions answered.? We will see her after the procedure.? Medications: New bisacodyl (Dulcolax (bisacodyl)) take 4 tabs at noon the day before your colonoscopy 20 mg (4 x 5 mg) PO ONCE 4 tabs 0RF 1 day Z12.11 - Encounter for screening for malignant neoplasm of colon magnesium citrate Drink one bottle at 17:00 and 2nd bottle at 22:00 296 mL PO ONCE 296 mL 1RF constipation Z12.11 - Encounter for screening for malignant neoplasm of colon Coding Level of Care Code New Pt Level 3 (45825) Diagnoses Screen for colon cancer Z12.11 Time Spent (min) 40 Comment 30 minutes spent with patient and additional 10 minutes spent reviewing her
[2023-09-20 15:46] VITALS: BP 138/64; PULSE 84; O2SAT 95; BMI 28.2
== END 2023-09-20 16:31 | disposition home or self-care (01) ==
LOC: HO.HGI 15:33
PROVIDERS: PCP Nurse Practitioner Primary Care; Referring Provider Nurse Practitioner Primary Care; Visit Provider Nurse Practitioner Family
DX: Z01.818 Encounter for other preprocedural examination (principal); Z12.11 Encounter for screening for malignant neoplasm of colon; Z86.010 Personal history of colon polyps; Z80.0 Family history of malignant neoplasm of digestive organs
CPT/HCPCS: S0285

== ENCOUNTER → 2023-09-20 15:33 | Outpatient (BNVA) | payer BC, SELFPAY | PROVIDERS: PCP Nurse Practitioner Primary Care; Referring Provider Nurse Practitioner Primary Care; Visit Provider Nurse Practitioner Family ==

== ENCOUNTER 2023-09-28 12:26 | Outpatient (AMB) | payer BC, SELFPAY ==
[2023-09-28 12:43] VITALS: BP 120/66; BMI 28.1
--- NOTE | 2023-09-28 12:43 | A.OFFVIS_ITS ---
Vital Signs 09/28/23 12:43 Height 5 ft 3 in Weight 158 lb 11.725 oz BMI 28.1 BP 120/66 Intake Visit Reasons: EMB Results/US follow up Allergies ibuprofen [From MOTRIN] Allergy (Mild, Verified 09/20/23 15:40) HAS 1 KIDNEY HPI Comments Details: Presenting for follow-up, doing well with no complaints, the follow-up is regarding right adnexal mass, myoma and thickened endometrium seen on pelvic ultrasound dated 09/06/2023 which showed the following: IMPRESSION: 1. Corresponding with the abdominal ultrasound findings, an 11.8 cm simple appearing cystic lesion is redemonstrated in the right adnexal region superior to the uterus and bladder. It is uncertain as to whether this is of ovarian origin; however, the possibility of an ovarian neoplasm is raised. Recommend further evaluation with CT or MRI of the pelvis. Gynecology and evaluation management are recommended. 2. There is postmenopausal endometrial stripe thickening to 1.6 cm, with irregularity and cystic change. Gynecology evaluation management are recommended, with consideration for tissue sampling, if clinically indicated. 3. A uterine fibroid is seen. 4. The ovaries are nonvisualized. CT scan and tumor markers including CA 125, CA 19-9 and CEA were ordered, all tumor markers came back normal and the CT scan showed the following: LUNG BASES: The visualized lung bases are unremarkable. LIVER, GALLBLADDER, AND BILIARY TREE: Liver is of low attenuation due to hepatic steatosis without intrahepatic masses, ductal dilatation is seen. The gallbladder is unremarkable with no evidence of radiopaque gallstones, gallbladder wall thickening, or obvious pericholecystic inflammatory changes. PANCREAS: Unremarkable. SPLEEN: Unremarkable. ADRENAL GLANDS: Unremarkable. KIDNEYS AND URETERS: Left kidney is surgically absent. Right kidney revealed few small parenchymal cysts but no hydroureteronephrosis or nephrolithiasis. BLADDER: Unremarkable. GASTROINTESTINAL TRACT: The small bowel are unremarkable. There are changes of colonic diverticulosis without diverticulitis mostly in the sigmoid colon and descending colon. The appendix is unremarkable. ABDOMINAL WALL: No significant hernia is appreciated. LYMPH NODES: Normal. VASCULAR: Unremarkable. PELVIC VISCERA: There is large cyst in right adnexa measured 10.0 x 9.7 x 10.4 cm without nodularity. There is large peripherally calcified mass in the uterus most likely uterine fibroid, measured 4.3 x 3.8 x 4.1 cm. There is no fluid in cul-de-sac OSSEUS STRUCTURES: Unremarkable. Endometrial biopsy was done, the pathology showed the following: Endometrium, biopsy: Superficial strips of benign atrophic endometrium with endocervical glandular and scant squamous epithelium; no atypia or carcinoma (see comment). Comment: The findings do not explain a thickened endometrium and clinical correlation is necessary. Last co testing was done in 09/10 was negative PFSH Medical History BRCA negative Left wrist fracture FH: mastectomy GERD (gastroesophageal reflux disease) Breast cancer Sensation of pressure in bladder area Surgical History Hx of spinal surgery H/O colonoscopy (~2020) Kidney donor H/O mastectomy History of bunionectomy Family History Sister Diabetes Mother Colon cancer Social History Household Members: Spouse Housing: House Alcohol intake: current Alcohol intake frequency: holidays/special occasions only Patient Tobacco Use Status: Former Tobacco user Years Smoked: 40 e-Cigarette/Vaping Use: Never Used service: No Current occupational status: employed 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 Sexual orientation: Straight/Heterosexual Gender identity: Female Cognitive needs: No Hearing needs: No Vision needs: Yes Review of Systems Const All systems reviewed & are unremarkable except as noted in HPI and below Reports as per HPI and Reports no additional complaints GI Reports no additional complaints Reports no additional complaints Physical Exam Vital Signs: Last Vital Signs BP 120/66 09/28/23 12:43 BMI result Body Mass Index 28.1 Assessment & Plan Assessment & Plan (1) Thickened endometrium: Code(s): R93.89 - Abnormal findings on diagnostic imaging of other specified body structures Category: Medical Plan: Discussed with the patient the results the pathology showing superficial strips of benign atrophic endometrium by the pathology made a Comment stating that the findings do not explain a thickened endometrium , differential diagnosis discussed with the patient included the following but not limited to inadequate sampling, not digital sales representative of the whole endometrial cavity, endometrial polyps or others. Explained to the patient the endometrial hyperplasia or malignancy or polyp has not been ruled out yet offered the patient repeat endometrial biopsy but the patient declined, discussed with the patient the indication for hysteroscopy D&C possible polypectomy myomectomy under anesthesia, the patient would prefer to have it done while anesthesia to address the adnexal pathology. (2) Uterine myoma: Code(s): D25.9 - Leiomyoma of uterus, unspecified Category: Medical Plan: Discussed with the patient the finding on ultrasound and CT scan showing uterine myoma and the risk of myosarcoma was discussed with the patient. All questions answered, the patient verbalized understanding (3) Pelvic mass: Code(s): R19.00 - Intra-abdominal and pelvic swelling, mass and lump, unspecified site Category: Medical Plan: Discussed with the patient the finding of adnexal mass with no nodularities or any other suspicious either than the size of the cyst, differential diagnosis discussed with the patient included but not limited to benign, premalignant or malignant causes. Recommended laparoscopic oophorectomy. Will refer to continuous vulcanizing machine operator Oncology for further management. Appointment scheduled with Dr. Wang on 10/08 10:20 a.m., the patient is aware Orders: Referrals Gynecologic Oncology Referral D25.9 - Leiomyoma of uterus, unspecified, R19.00 - Intra-abdominal and pelvic swelling, mass and lump, unspecified site, R93.89 - Abnormal findings on diagnostic imaging of other specified body structures Coding Level of Care Code Est Pt Level 3 (47711) Diagnoses Thickened endometrium R93.89 Uterine myoma D25.9 Pelvic mass R19.00
== END 2023-09-28 13:20 | disposition home or self-care (01) ==
LOC: HO.HWS 12:26
PROVIDERS: PCP Nurse Practitioner Primary Care; Visit Provider Obstetrics & Gynecology
DX: R93.89 Abnormal findings on diagnostic imaging of other specified body structures (principal); D25.9 Leiomyoma of uterus, unspecified; R19.00 Intra-abdominal and pelvic swelling, mass and lump, unspecified site
CPT/HCPCS: 99213

== ENCOUNTER → 2023-09-28 12:26 | Outpatient (BNVA) | payer BC, SELFPAY | PROVIDERS: PCP Nurse Practitioner Primary Care; Visit Provider Obstetrics & Gynecology ==

== ENCOUNTER 2024-02-01 16:00 | Outpatient (REF) | payer BC, SELFPAY ==
--- NOTE | ~2024-02-01 | MM_ITS ---
EXAMINATION: MM SCREENING DIGITAL BREAST TOMOSYNTHESIS, LEFT CLINICAL INFORMATION: Screening. Asymptomatic. Right mastectomy. COMPARISON: Mammography: Comparison is made with available priors TECHNIQUE: Digital breast mammography with tomosynthesis is performed in both the craniocaudal and mediolateral oblique views along with computer-aided detection (CAD). FINDINGS: There are scattered areas of fibroglandular density (ACR BI-RADS breast composition Category b). Retropectoral saline implant is stable appearing. Marker clip. There are no significant masses, abnormal calcifications, or other abnormalities. MM/MM tomosynthesis screen imp LT IMPRESSION: No mammographic evidence of malignancy. ASSESSMENT: BI-RADS BI-RADS 2 - Benign Findings RECOMMENDATION: Routine annual mammography screening. 1 year F/U This examination should not preclude the clinical evaluation of a suspicious palpable abnormality. This patient's information was entered into a reminder system with a target due date for their next mammogram. Electronically signed by: Katerina Paul DO 02/13/2024 11:08 AM [place]
== END 2024-02-01 16:01 | disposition home or self-care (01) ==
LOC: HO.MAMMO 16:00
PROVIDERS: PCP Internal Medicine; Visit Provider Internal Medicine
DX: Z12.31 Encounter for screening mammogram for malignant neoplasm of breast (principal)
CPT/HCPCS: 77067

== ENCOUNTER → 2024-02-01 16:00 | Outpatient (BNV) | payer BC, SELFPAY | PROVIDERS: PCP Internal Medicine; Visit Provider Internal Medicine | DX: Z12.31 Encounter for screening mammogram for malignant neoplasm of breast (principal) | CPT/HCPCS: 77063; 77067 ==

== ENCOUNTER 2024-02-08 16:07 | Outpatient (REF) | payer BC, SELFPAY | END 2024-02-08 16:08 | disposition home or self-care (01) | LOC: HO.LAB 16:07 | PROVIDERS: PCP Internal Medicine; Visit Provider Nurse Practitioner Family | DX: R33.9 Retention of urine, unspecified (principal); R39.9 Unspecified symptoms and signs involving the genitourinary system | CPT/HCPCS: 87086 ==

== ENCOUNTER 2024-02-13 07:22 | Day surgery (SDC) | payer BC, SELFPAY ==
[2024-02-08 15:10] VITALS: BMI 28.2
[2024-02-13 07:53] VITALS: BP 107/62; PULSE 72; RESP 18; TEMP 36.9; O2SAT 96; BMI 28.7
[2024-02-13] MEDS: Lactated Ringers 1,000 ML 50 ML IVCONT (08:20)
--- NOTE | 2024-02-13 08:33 | MHC.SHP ---
Pre-Procedural Eval Section A - 24 Hr Update-Section A only Date of Service: 02/13/24 Section B - Complete if H&P > 30 days Chief Complaint: screening Details of Present Illness: Hx of spinal surgery H/O colonoscopy (~2020) Kidney donor H/O mastectomy History of bunionectomy Family History Sister Diabetes Mother: CRC Present Medications: see Short Stay Collaborative assessment Allergies: Allergies Allergy/AdvReac Type Severity Reaction Status Date / Time ibuprofen [From MOTRIN] Allergy Mild HAS 1 Verified 09/20/23 15:40 KIDNEY Review of Systems Review of Systems Comment: Ten point ROS negative Exam Exam Comment: Gen appear: No acute distress HEENT: no icterus Chest: No overt resp distress Abd: soft, nontender, nondistended Psych: Stable affect, answering questions appropriately Neuro: A/Ox3 noted to move all extremities spontaneously Ext: no peripheral edema Plan Diagnosis/Plan: Unchanged I have reviewed the history and physical and performed a pertinent physical examination on my patient. No changes have occurred unless specified. Time Spent With Patient Time: Total time managing care of this patient today ____ minutes.
--- NOTE | 2024-02-13 09:32 | P.CONAN_ITS ---
HPI - Anesthesia Eval Consult details Narrative: colon screen [facility] Active Problems Active Problems: All Active Problems Uterine myoma (Acute) Thickened endometrium (Acute) Pelvic mass (Acute) At high risk for fracture (Acute) Enlarged uterus (Acute) Well woman exam (Acute) Solitary kidney, acquired (Acute) Incomplete bladder emptying (Acute) Lower urinary tract symptoms (Acute) Lesion of bladder (Acute) Microscopic hematuria (Acute) Nicotine dependence (Acute) Osteopenia (Acute) Vitamin D deficiency (Acute) Hyperlipidemia (Acute) Encounter for routine adult physical exam with abnormal findings (Acute) Atypical nevi (Acute) Abdominal pain (Acute) Incontinence (Acute) Cervical disc disorder (Acute) Acute sinus infection (Acute) Intramural uterine fibroid (Acute) Sinusitis (Acute) Left sciatic nerve pain (Acute) Acute pain of left hip (Acute) Left hip pain (Acute) Colitis (Acute) Sensation of pressure in bladder area (Acute) Past Medical History Medical History Hyperlipidemia Osteopenia Urge incontinence BRCA negative Left wrist fracture FH: mastectomy GERD (gastroesophageal reflux disease) Breast cancer Family History Family History Sister Diabetes Mother Colon cancer Family history of problems with anesthesia: No Surgical History Surgical History Hx of spinal surgery H/O colonoscopy (~2020) Kidney donor H/O mastectomy History of bunionectomy History of Problems with Anesthesia: No Social History Social History Household Members: Spouse Housing: House Alcohol intake: current Alcohol intake frequency: holidays/special occasions only Patient Tobacco Use Status: Former Tobacco user Years Smoked: 40 e-Cigarette/Vaping Use: Never Used Have you been hit, kicked, punched, or otherwise hurt by someone within the past year? 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 Sexual orientation: Straight/Heterosexual Gender identity: Female Cognitive needs: No Hearing needs: No Vision needs: Yes Meds Allergies Allergy/AdvReac Type Severity Reaction Status Date / Time ibuprofen [From MOTRIN] Allergy Mild HAS 1 Verified 09/20/23 15:40 KIDNEY Active Medications: Current Medications Lactated Ringer's (Lr) 1,000 mls @ 50 mls/hr IVCONT .Q20H CEDRICK Last Admin: 02/13/24 08:20 Dose: 50 mls/hr Home Medications ?Medication ?Instructions ?Recorded ?Confirmed ?Last Taken ?Type omeprazole 20 mg tablet,delayed 20 mg PO DAILY PRN Acid Reflux 06/15/23 02/08/24 Unknown History release cholecalciferol (vitamin D3) 25 25 mcg PO DAILY 08/29/23 02/08/24 Unknown History mcg (1,000 unit) capsule Exam Height,Weight and Vital Signs: Height 5 ft 3 in Weight 73.56 kg Last Vital Signs Temp 98.5 F 02/13/24 07:53 Pulse 72 02/13/24 07:53 Resp 18 02/13/24 07:53 BP 107/62 02/13/24 07:53 Pulse Ox 96 02/13/24 07:53 O2 Del Method Room Air 02/13/24 07:53 Airway Mallampati Class: II TM Dist: >3cm Neck ROM: Full Heart: rrr Lungs: cta Assessment and Plan Assessment Anesthesia Assessment: Anesthesia Plan Discussed Final Anesthetic Review Family History of Problems with Anesthesia: No History of Problems with Anesthesia: No NPO: Yes Final Preanesthetic Review: No Changes in Pt Med Stat, Meds/Allgs Chart Reviewed, Consent Obtained/Reviewed and Anes Risks/Benef Reviewed Patient Risk: Low Procedure Risk: Low Anesthetic Plan Anesthetic Plan: MAC:
[2024-02-13 09:53] VITALS: O2SAT 96
--- NOTE | 2024-02-13 09:57 | P.OPN-COLO_ITS ---
Colonoscopy Operative Note Operative Note Date of Service: 02/13/24 Narrative: Procedure: Colonoscopy Indication: Family history of colon cancer Endoscopist: Hannah Hutchins MD Anesthesia Provider: Summer Mejía CRNA Anesthesia type: MAC Instrument: Olympus [id number]-[id number] Consent: Indication, risks vs benefits, and alternatives were discussed with the patient who gave written informed consent to proceed. EKG, pulse, pulse oximetry and blood pressure were monitored throughout the procedure. Please see anesthesia flowsheet. Procedure: The patient was brought to the procedure room and placed in the left lateral decubitus position. IV medications were administered by the anesthesia provider in attendance. A digital rectal exam was performed which was normal. A distal attachment cap was affixed to the tip of the colonoscope which was then inserted through the anus and advanced through the colon to the cecum at 75 cm,and terminal ileum. Appendiceal orifice and ileocecal valve were identified. Mucosa was carefully examined under high definition white light as the instrument was slowly withdrawn in a retrograde panoramic fashion. Retroflexion was performed in ascending colon and rectum. The procedure was not difficult. There were no immediate obvious complications. The quality of the prep was BBPS: 3+2+3 = adequate Withdrawal time 12 minutes. Limitations: No limitations. Findings: Mucosa: Normal to cecum and terminal ileum. Protruding lesions: * 3 sessile polyp of size 2-4 mm in sigmoid colon. Cold snare polypectomy was performed. The polyps were completely removed and retrieved. * Medium internal hemorrhoids without stigmata of recent bleeding. Excavated lesions: * Mild to moderate diverticulosis of left sided colon. Impression: 1. Normal colon and terminal ileum mucosa 2. Total of 3 polyps removed from sigmoid colon 3. Internal hemorrhoids 4. Diverticulosis Recommendations: - Follow path results. - Repeat colonoscopy in 3-5 years depending on the results of the polyps
[2024-02-13 10:07] VITALS: BP 118/64; PULSE 68; RESP 16; TEMP 36.4; O2SAT 96
== END 2024-02-13 10:35 | disposition home or self-care (01) ==
PROVIDERS: PCP Internal Medicine; Visit Provider Internal Medicine
PROC: 0DJD8ZZ Inspection of Lower Intestinal Tract, Via Natural or Artificial Opening Endoscopic (ICD-10-PCS; CPT 45378; principal; 2024-02-13 09:20)
DX: Z12.11 Encounter for screening for malignant neoplasm of colon (principal); K63.5 Polyp of colon; K57.30 Diverticulosis of large intestine without perforation or abscess without bleeding; K64.8 Other hemorrhoids; Z80.0 Family history of malignant neoplasm of digestive organs; E78.5 Hyperlipidemia, unspecified; E55.9 Vitamin D deficiency, unspecified; Z87.891 Personal history of nicotine dependence; Z79.899 Other long term (current) drug therapy; Z85.3 Personal history of malignant neoplasm of breast
CPT/HCPCS: 45385; 88305; J2003; J2704

== ENCOUNTER → 2024-02-13 07:22 | Outpatient (BNV) | payer BC, SELFPAY | PROVIDERS: PCP Internal Medicine; Visit Provider Internal Medicine | DX: Z12.11 Encounter for screening for malignant neoplasm of colon (principal); Z80.0 Family history of malignant neoplasm of digestive organs; K63.5 Polyp of colon; K57.30 Diverticulosis of large intestine without perforation or abscess without bleeding | CPT/HCPCS: 45385 ==

== ENCOUNTER 2024-06-18 08:02 | Outpatient (AMB) | payer BC, SELFPAY ==
[2024-06-18 08:04] VITALS: BP 128/78; PULSE 92; RESP 18; TEMP 36.8; O2SAT 95; BMI 27.5
--- NOTE | 2024-06-18 08:04 | MHC.PC.OV ---
Vital Signs 06/18/24 08:04 Height 5 ft 3 in Weight 155 lb BMI 27.5 BP 128/78 Blood Pressure Location Lt brachial Position Sitting Respiration 18 Pulse 92 Pulse Source Pulse Oximeter Temp 98.3 F Temp Source Oral Pulse Oximetry (%) 95 Oxygen Delivery Method Room Air Intake Visit Reasons: PE due/transfer from [facility]. Intake Note: Pt is here today for PE. Allergies ibuprofen [From MOTRIN] Allergy (Mild, Verified 06/18/24 08:06) HAS 1 KIDNEY Medication List - Last Reconciled 06/18/24 by Milagros Leon MD alendronate 70 mg PO QWEEK cholecalciferol (vitamin D3) 25 mcg PO DAILY omeprazole 20 mg PO DAILY PRN Tobacco use date assessed: 06/18/24 Fall risk assessment: No Falls in past year Last assessed Fall Risk: 06/18/24 Dental Screening Dental Screen Date: 06/18/24 Did you have a dental visit in the last 12 months?: No Did you have a dental problem in the last 6 months where you did not have access to dental care?: No Was dental information given to patient?: Patient declined HPI PE due/transfer from [facility]. HPI Details Patient presents for physical. She has not been compliant with taking alendronate weekly for osteopenia. Patient walks regularly but has not been doing any weight-bearing exercises or taking supplemental vitamin-D. [facility] Medical History (Updated 06/18/24 @ 09:16 by Milagros Leon MD) Hyperlipidemia Osteopenia Urge incontinence BRCA negative Left wrist fracture FH: mastectomy GERD (gastroesophageal reflux disease) Breast cancer Surgical History (Updated 06/18/24 @ 09:10 by Milagros Leon MD) Hx of hysterectomy Hx of spinal surgery H/O colonoscopy Kidney donor H/O mastectomy History of bunionectomy Family History Sister Diabetes Mother Colon cancer Social History Household Members: Spouse Housing: House Alcohol intake: current Alcohol intake frequency: holidays/special occasions only Patient Tobacco Use Status: Former Tobacco user Years Smoked: 40 e-Cigarette/Vaping Use: Never Used service: No Current occupational status: employed 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 1. Little interest or pleasure in doing things: not at all 2. Feeling down, depressed, or hopeless: not at all 3. Trouble falling or staying asleep, or sleeping too much: not at all 4. Feeling tired or having little energy: not at all 5. Poor appetite or overeating: not at all 6. Feeling bad about yourself - or that you are a failure or have let yourself or your family down: not at all 7. Trouble concentrating on things, such as reading the newspaper or watching television: not at all 8. Moving or speaking so slowly that other people could have noticed. Or the opposite - being so fidgety or restless that you have been moving around a lot more than usual: not at all 9. Thoughts that you would be better off or of hurting yourself in some way: not at all Total score: 0 Depression Screening Interpretation: Negative Depression Screening Done: Yes 48980 - PHQ-9 Billing: Yes Source: Developed by Drs. Esdras Ramos, Lisa Hein, Main Simpson and colleagues, with an educational jenn from [employer]. Thrive Questionnaire Date Thrive assessed: 06/18/24 I am a: Patient What is your living situation today?: I have a steady place to live Within the past 12 months, did the food you bought not last and you didn't have the money to get more?: Never true Within the past 12 months, did you worry whether your food would run out before you got money to buy more?: Never true Do you have trouble paying for medicines?: No Do you have trouble getting transportation to medical appointments?: No Do you have trouble paying your heating and electricity bill?: No Do you have trouble taking care of your child, family member or friend?: No Do you have trouble with day-to-day activities such as bathing, preparing meals, shopping, managing finances, etc.?: No Are you currently unemployed and looking for a job?: No Are you interested in more education?: No Please select the resources that you would like help with: None Currently or been in a relationship where the following occur: No concerns reported THRIVE Score: 0 AUDIT C Alcohol Use Questionnaire (AUDIT-C) 1. How often do you have a drink containing alcohol?: 2-3 times a week 2. How many drinks containing alcohol do you have on a typical day when you are drinking?: 1 or 2 3. How often do you have six or more drinks on one occasion?: Never Total Score: 3 ABEL-7 AMB Questionnaire ABEL-7 Date ABEL - 7 assessed: 06/18/24 Feeling nervous, anxious, or on edge: 1 = Several days Not being able to stop or control worryin = Several days Worrying too much about different things: 1 = Several days Trouble relaxin = Not at all Being so restless that it is hard to sit still: 0 = Not at all Becoming easily annoyed or irritable: 0 = Not at all Feeling afraid as if something awful might happen: 0 = Not at all Total ABEL-7 score (0-4 normal; 5-9 mild; 10-14 moderate; 15-21 severe): 3 Source: Developed by Drs. Esdras Ramos, Lisa Hein, Main Simpson and colleagues, with an educational jenn from [employer]. ABEL-7 Assessment Billing ABEL-7 Assessment Tool: ABEL-7 Assessment 01012 Review of Systems Const All systems reviewed & are unremarkable except as noted in HPI and below Reports no additional complaints Eyes Reports no additional complaints ENT Reports no additional complaints Card Reports no additional complaints Resp Reports no additional complaints GI Reports no additional complaints Physical exam (Primary Care) Vital Signs: Last Vital Signs Temp 98.3 F 06/18/24 08:04 Pulse 92 06/18/24 08:04 Resp 18 06/18/24 08:04 BP 128/78 06/18/24 08:04 Pulse Ox 95 06/18/24 08:04 Oxygen Delivery Method Room Air 06/18/24 08:04 BMI result Body Mass Index 27.5 Tobacco/Smoking Status: Tobacco use Status Tobacco use date assessed 06/18/24 06/18/24 08:13 Patient Tobacco Use Status Former Tobacco user 06/18/24 08:13 e-Cigarette/Vaping Use Never Used 06/18/24 08:13 PHQ-9: PHQ-9 Score PHQ-9: Total score 0 06/18/24 08:13 Depression Screening Interpretation: Negative Thrive Assessment: Date of Thrive Assessment Date Thrive assessed 06/18/24 06/18/24 08:13 Currently or been in a relationship where the following occur: No concerns reported Const General: no acute distress HENMT Head: Yes normal to inspection Ears: hearing grossly normal bilaterally Face and sinus: Yes normal facial exam Throat: Yes posterior oropharynx normal Eyes General: appearance normal, both eyes and all related structures Neck Neck: Yes no lymphadenopathy and Yes supple Resp Effort & Inspection: normal respiratory effort Auscultation: clear to auscultation bilaterally Cardio Rhythm: regular rhythm Heart sounds: S1 normal heart sound present and S2 normal heart sound present GI Inspection: Yes normal to inspection Palpation (GI): Soft to palpation Percussion: Yes normal to percussion Auscultation: normal bowel sounds Coding Level of Care Code Est Pt Prev Care >65y(90849) Diagnoses Urinary incontinence R32 Atypical nevi D22.9 Hx of colonoscopy Z98.890 Osteopenia, unspecified location M85.80 Osteopenia location: unspecified Encounter for routine adult physical exam with abnormal findings Z00.01 Additional Codes ABEL-7 Assessment Billing - ABEL-7 Assessment Tool: ABEL-7 Assessment 37650 ([id number]) PHQ-9 - 18779 - PHQ-9 Billing: Yes ([id number]) Assessment & Plan Assessment & Plan (1) Urinary incontinence: Comment: Patient was evaluated by Urology, not a candidate for topical estrogen due to precancerous endometrial cells on hysterectomy Code(s): R32 - Unspecified urinary incontinence Category: Medical Plan: Stress incontinence patient was advised to do Kegel exercises. UA and urine culture will be checked. (2) Atypical nevi: Comment: Will refer to Dermatology. Code(s): D22.9 - Melanocytic nevi, unspecified Category: Medical Plan: Referred to dermatology (3) Hx of colonoscopy: Comment: 01/2024 3 POLYPS Code(s): Z98.890 - Other specified postprocedural states Category: Surgical Plan: Repeat colonoscopy in 3 years (4) Osteopenia: Comment: DEXA 2023 T score -2.3 femoral neck. Prescribed alendronate but noncompliant. Patient was advised to start taking alendronate regularly 06/2024 and will recheck DEXA in 2 years Code(s): M85.80 - Other specified disorders of bone density and structure, unspecified site Category: Medical Qualifiers: Osteopenia location: unspecified Qualified Code(s): M85.80 - Other specified disorders of bone density and structure, unspecified site Plan: Patient was advised to restart alendronate and take vitamin-D, weight-bearing exercise discussed with the patient. (5) Encounter for routine adult physical exam with abnormal findings: Code(s): Z00.01 - Encounter for general adult medical examination with abnormal findings Category: Medical Plan: Well-balanced diet regular physical activity discussed with the patient. She is up-to-date with the mammogram. Patient will return for fasting blood work Orders: Orders Comprehensive [place]. Panel Fast Today D22.9 - Melanocytic nevi, unspecified TSH reflex Free T4 Today D22.9 - Melanocytic nevi, unspecified Vitamin D 25-OH Total Today D22.9 - Melanocytic nevi, unspecified UA w Microscopic Today R32 - Unspecified urinary incontinence Complete Blood Count Auto Diff Today D22.9 - Melanocytic nevi, unspecified Lipid Panel Today D22.9 - Melanocytic nevi, unspecified Referrals Dermatology Referral D22.9 - Melanocytic nevi, unspecified Medications: New omeprazole 20 mg PO DAILY 90 caps 3RF Refilled alendronate 70 mg PO QWEEK 14 tabs 3RF
--- OUTSIDE RECORDS SUMMARY | 2024-06-18 08:11 | XMS_ITS | Clinical Summary ---
Author Organization [facility] Address [address] [place] [address] Care Team Providers Care Shellfish Harvester Name Role Phone Deonna Wang MD Primary Care Provider [phone] Allergies Active Allergy Reactions Criticality Noted Date Comments Ibuprofen Other 12/01/2010 Pt only has 1 kidney Medications diphenhydrAMINE 12.5 mg/5 mL elixir 50 mg, aluminum-magnesi um hydroxide-simeth icone 400-400-40 mg/5 mL suspension 20 mL, lidocaine 2 % solution 20 mL Swish and spit 10 mL. 02/02/2022 Active Active Problems Problem Noted Date Diagnosed Date Breast asymmetry following reconstructive surger y 04/24/2020 Mass of thigh, left 06/19/2018 Non-celiac gluten sensitivity 01/25/2018 Multiple thyroid nodules 05/23/2017 Actinic keratoses 07/12/2016 Overview (05/26/2023): Actinic keratoses Simple ovarian cyst 03/24/2016 Overview (05/26/2023): Right, can follow with US. 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 Immunizations Name Administration Dates Next Due Influenza Quadravalent, MDCK , 0.5ml, preservative free (Flucelvax) 6mo and older 04/16/2019 Influenza Quadravalent, MDCK , 0.5ml, with preservative (Flucelvax) 6mo and older 01/17/2018 Influenza trivalent, with pr eservative (Fluzone; Afluria) 6mo and older 05/25/2016,02/06/2014 PPD Test 03/11/2000 Tdap Tetanus diptheria acell ular pertussis (Boostrix; Adacel) 7yo and older 02/06/2014 Surgical History Surgery Date Site/Laterality Comments OTHER SURGICAL HISTORY PROCEDURE: MT LIG/TRNSXJ FLP TUBE ABDL/VAG APPR UNI/BI MASTECTOMY PROCEDURE: HISTORICAL MASTECTOMY; COMMENT: Right, for breast CA, with subsequent reconstruction ESOPHAGOGASTRODUODENOSCOPY 05/14/07 PROCEDURE: MT EGD TRANSORAL BIOPSY SINGLE/MULTIPLE; COMMENT: Multiple gastric polyps, removed-fundic gland polyp. Nl SB-bx:suggestive of CELIAC disease ESOPHAGOGASTRODUODENOSCOPY 03/10/08 PROCEDURE: MT EGD TRANSORAL BIOPSY SINGLE/MULTIPLE; COMMENT: Small whitish plaques in the esophagus of unclear etiology-bx:Nl, Nl stomach, NL SB-bx:Nl (in view that she is on gluten free diet, suggest celiac disease) NECK SURGERY 06/26/14 PROCEDURE: HISTORICAL NECK SURGERY; COMMENT: Anterior cervical discectomy/arthrodesis C6-7, Dr. Reynaldo Ansari, [facility] BREAST BIOPSY 2012 Left PROCEDURE: BX BREAST; PERC NEEDLE CORE W/IMAG GUID; COMMENT: b9 OTHER SURGICAL HISTORY 2000 Bilateral PROCEDURE: IMPLANT BREAST SILICONE/EQ BREAST SURGERY 2000 Bilateral PROCEDURE: MT UNLISTED PROCEDURE BREAST; COMMENT: Breast Implants BREAST SURGERY 1994si Right PROCEDURE: MT UNLISTED PROCEDURE BREAST; COMMENT: [email or web address] COLONOSCOPY 05/14/07 PROCEDURE: MT COLONOSCOPY STOMA DX INCLUDING COLLJ SPEC SPX; COMMENT: Up to cecum, good preparation, normal COLONOSCOPY 06/11/12 PROCEDURE: MT COLONOSCOPY STOMA W/RMVL ELA POLYP/OTH LES SNARE; COMMENT: L divertics, polyps @ desc, sigmoid, upper rectum, distal rectum -> snared, bx- descending, sigmoid polyps tubular adenomas. Rectal polyps equal hyperplastic COLONOSCOPY 04/27/17 [facility] PROCEDURE: HISTORICAL COLONOSCOPY; COMMENT: hemorrhoids and tics; repeat in 5 yrs under propofol BUNIONECTOMY 04/2020 Left PROCEDURE: BUNION SURGERY, SIMPLE REMOVAL; COMMENT: Dr. 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 Lung Heart attack Maternal Grandfather 70 Breast cancer Maternal Grandmother 70s matern al grandmother-stroke at 88- Colon cancer Mother Breast cancer Other m gr gma 80s maternal great grandmother- at 98 Diabetes Paternal Grandmother other p aternal relatives (aunt, uncle) Breast cancer Sister 1 Lung cancer Sister 1 former smoker Breast cancer Sister 2 52 Diabetes Sister 2 52 Ovarian cancer Neg Hx Relation Name Status Comments Brother 1 Alive Chuckie; healthy Brother 2 Alive Marlon; asthma Brother 3 Alive Osman; back issue s Father CA Lung Maternal Grandfather Maternal Grandmother 70s Mother Alive CA Colon Other m gr gma 80s Paternal Grandfather Paternal Grandmother Sister 1 Alive Sister 2 52 Sister 3 Alive Rosibel; CA Lung; former smoker Sister 4 Alive Elham; lyme di sease (tick bite) Sister 5 Alive Radha; DM Son 1 Alive 1979; Tye; healthy Son 2 Alive 1981; Shady; ifeanyi norris transplant (patient was donor); healthy Social History Tobacco Use Types Packs/Day Years Used Date Smoking Tobacco: Former Cigarettes Q uit: 04/08/2018 Smokeless Tobacco: Never Alcohol Use Standard Drinks/Week Comments Yes 0 (1 standard drink = 0.6 oz pur e alcohol) Comments Unknown Sex and Gender Information Value Date Recorded Sex Assigned at Not on file Legal Sex Female 1:28 PM EST Gender Identity Not on file Sexual Orientation Not on file Obstetrics History Last Filed Vital Signs Vital Sign Reading Time Taken Comments Blood Pressure 100/64 02/02/2022 9:33 AM EST Pulse 78 02/02/2022 9:33 AM EST Temperature - - Respiratory Rate - - Oxygen Saturation - - Inhaled Oxygen Concentration - - Weight - - Height - - Body Mass Index - - Plan of Treatment Health Maintenance Due Date Last Done Comments Pneumococcal Vaccine: 50+ Years (1 of 2 - PCV) 1976 Zoster Vaccines (1 of 2) 1976 COVID-19 Vaccine (3 - Moderna risk series) 07/30/2020 07/02/2020, 06/04/2020 Colorectal Cancer Screening: Colonoscopy 02/26/2022 Depression Screening 02/26/2022 Hepatitis C Screening 02/26/2022 Osteoporosis Screening (Bone Density Screening) 02/26/2022 Social Influencers of Health Screening 02/26/2022 Falls Risk Assessment 2022 Influenza Vaccine (#1) 2023 0, 01/17/2018, 05/25/2016, Additional history exists Breast Cancer Screening 01/22/2024 01/22/20, 01/15/2022, 01/09/2021, Additional history exists DTaP,Tdap,and Td Vaccines (2 - Td or Tdap) 02/07/2024 02/06/2014 Cholesterol Screening (Lipid Panel) 04/02/2024 04/02/2019 RSV Immunization Patients 60+ Years Old (1 - 1-dose 75+ series) 2032 HIB Vaccines Aged Out No longer eligi ble based on patient's age to complete this topic HPV Vaccines Aged Out No longer eligi ble based on patient's age to complete this topic Hepatitis A Vaccines Aged Out No long er eligible based on patient's age to complete this topic Hepatitis B Vaccines Aged Out No long er eligible based on patient's age to complete this topic IPV Vaccines Aged Out No longer eligi ble based on patient's age to complete this topic MMR Vaccines Aged Out No longer eligi ble based on patient's age to complete this topic Meningococcal ACWY Vaccine Aged Out N o longer eligible based on patient's age to complete this topic Meningococcal B Vacine Aged Out No lo nger eligible based on patient's age to complete this topic RSV Immunization Patients Under 20 months Aged Out No longer eligible based on patient's age to complete this topic Varicella Vaccines Aged Out No longer eligible based on patient's age to complete this topic Procedures Procedure Name Priority Date/Time Associated Diagnosis Comments SCREENING MAMMOGRAPHY BI 2-VIEW BREAST INC CAD Routine 01/21/2023 9:41 AM EDT Personal history of malignant neoplasm of breast from Last 3 Months or Most Recently Relevant to Health Maintenance Results * SCREENING MAMMOGRAPHY BI 2-VIEW BREAST INC CAD (01/21/2023 9:41 AM EDT) Anatomical Region Laterality Modality Radiographic Orly ging 01/15/2022 11:0 7 AM EDT Narrative 01/23/2023 2:26 PM EST This is a summary report. The complete report is available in the patient's medical record. If you cannot access the medical record, please contact the sending organization for a detailed fax or copy. UNILATERAL 3D DIGITAL SCREENING MAMMOGRAM History: Routine screening. ??No current breast complaints. ??Personal history of right breast cancer status postmastectomy. Comparison: Multiple priors dating back to 06/07/2018 Technique: Unilateral full-field digital 3D mammography was performed using standard CC and MLO projections, left breast implant displaced views were performed. CAD was used to evaluate this mammogram. Findings: Density: ??There are scattered areas of fibroglandular density-B LEFT: No suspicious masses, groups of microcalcifications or areas of architectural distortion identified. Stable typically benign parenchymal asymmetries. ??Intact implant IMPRESSION: : 1. ??No mammographic evidence of malignancy. BI-RADS Category 2 benign findings Recommendation: Routine annual screening mammography is recommended Procedure Note Julius Torrez MD - 04/25/2023 This is a summary report. The complete report is available in thepatient's medical record. If you cannot access the medical record, pleasecontact the sending organization for a detailed fax or copy. UNILATERAL 3D DIGITAL SCREENING MAMMOGRAM History: Routine screening. No current breast complaints. Personalhistory of right breast cancer status postmastectomy. Comparison: Multiple priors dating back to 06/07/2018 Technique: Unilateral full-field digital 3D mammography was performedusing standard CC and MLO projections, left breast implant displaced viewswere performed. CAD was used to evaluate this mammogram. Findings: Density: There are scattered areas of fibroglandular density-B LEFT: No suspicious masses, groups of microcalcifications or areas ofarchitectural distortion identified. Stable typically benign parenchymalasymmetries. Intact implant IMPRESSION: : 1. No mammographic evidence of malignancy. BI-RADS Category 2 benign findings Recommendation: Routine annual screening mammography is recommended us Deonna Wang MD IMG XR PROCEDURES Final Result from Last 3 Months or Most Recently Relevant to Health Maintenance Care Teams Shellfish Harvester Relationship Specialty Start Date End Date Deonna Wang MD [address] [place] [phone] PCP - General Internal Medicine 11/20/20
== END 2024-06-18 08:52 | disposition home or self-care (01) ==
LOC: HO.HMCC 08:03
PROVIDERS: PCP Nurse Practitioner Primary Care; Visit Provider Internal Medicine
DX: R32 Unspecified urinary incontinence (principal); D22.9 Melanocytic nevi, unspecified; Z98.890 Other specified postprocedural states; M85.80 Other specified disorders of bone density and structure, unspecified site; Z00.01 Encounter for general adult medical examination with abnormal findings

== ENCOUNTER → 2024-06-18 08:02 | Outpatient (BNVA) | payer BC, SELFPAY | PROVIDERS: PCP Nurse Practitioner Primary Care; Visit Provider Internal Medicine | DX: Z00.01 Encounter for general adult medical examination with abnormal findings (principal); N39.3 Stress incontinence (female) (male); D22.9 Melanocytic nevi, unspecified; M85.80 Other specified disorders of bone density and structure, unspecified site | CPT/HCPCS: 96127 ==

== ENCOUNTER 2024-06-24 06:26 | Outpatient (REF) | payer MEDICARE, SELFPAY ==
--- OUTSIDE RECORDS SUMMARY | 2024-06-24 06:29 | XMS_ITS | Clinical Summary ---
Author Organization [facility] it Address [address] [place] [address] Care Team Providers Care Automobile Relocation Engineer Name Role Phone Deonna Wang MD Primary Care Provider [phone] Allergies Active Allergy Reactions Criticality Noted Date [...] Date Site/Laterality Comments OTHER SURGICAL HISTORY PROCEDURE: [place] LIG/TRNSXJ FLP TUBE ABDL/VAG APPR UNI/BI MASTECTOMY PROCEDURE: HISTORICAL MASTECTOMY; COMMENT: Right, for breast CA, with subsequent reconstruction ESOPHAGOGASTRODUODENOSCOPY 05/14/07 PROCEDURE: NH EGD TRANSORAL BIOPSY SINGLE/MULTIPLE; COMMENT: Multiple gastric polyps, removed-fundic gland polyp. Nl SB-bx:suggestive of CELIAC disease ESOPHAGOGASTRODUODENOSCOPY 03/10/08 PROCEDURE: NH EGD TRANSORAL BIOPSY SINGLE/MULTIPLE; COMMENT: Small whitish plaques in the esophagus of unclear etiology-bx:Nl, Nl stomach, NL SB-bx:Nl (in view that she is on gluten free diet, suggest celiac disease) NECK SURGERY 06/26/14 PROCEDURE: HISTORICAL NECK SURGERY; COMMENT: Anterior cervical discectomy/arthrodesis C6-7, Dr. Reynaldo Ansari, [facility] BREAST BIOPSY 2012 Left PROCEDURE: BX BREAST; PERC NEEDLE CORE W/IMAG GUID; COMMENT: b9 OTHER SURGICAL HISTORY 2000 Bilateral PROCEDURE: IMPLANT BREAST SILICONE/EQ BREAST SURGERY 2000 Bilateral PROCEDURE: NH UNLISTED PROCEDURE BREAST; COMMENT: Breast Implants BREAST SURGERY 1994si Right PROCEDURE: NH UNLISTED PROCEDURE BREAST; COMMENT: [email or web address] COLONOSCOPY 05/14/07 PROCEDURE: NH COLONOSCOPY STOMA DX INCLUDING COLLJ SPEC SPX; COMMENT: Up to cecum, good preparation, normal COLONOSCOPY 06/11/12 PROCEDURE: NH COLONOSCOPY STOMA W/RMVL ELA POLYP/OTH LES SNARE; COMMENT: L divertics, polyps @ desc, sigmoid, upper rectum, distal rectum -> snared, bx- descending, sigmoid polyps tubular adenomas. Rectal polyps equal hyperplastic COLONOSCOPY 04/27/17 [facility] PROCEDURE: HISTORICAL COLONOSCOPY; COMMENT: hemorrhoids and tics; repeat in 5 yrs under propofol BUNIONECTOMY 04/2020 Left PROCEDURE: BUNION SURGERY, SIMPLE REMOVAL; COMMENT: Dr. Foster José - [facility] Medical History Medical History Date Comments Kidney [...] Health Screening 02/26/2022 Falls Risk Assessment 2022 Breast Cancer Screening 01/22/2024 01/22/20, 01/15/2022, 01/09/2021, Additional history exists DTaP,Tdap,and Td Vaccines (2 - Td or Tdap) 02/07/2024 02/06/2014 Cholesterol Screening (Lipid Panel) 04/02/2024 04/02/2019 Influenza Vaccine (Season Ended) 2024 04/16/2019, 01/17/2018, 05/25/2016, Additional history exists RSV Immunization Adult Patients (1 - 1-dose 75+ series) 2032 HIB [...] Recently Relevant to Health Maintenance Care Teams Automobile Relocation Engineer Relationship Specialty Start Date End Date Deonna Wang MD [address] [place] [id number] PCP - General Internal Medicine 11/20/20
[2024-06-24 10:13] LABS: Appearance Urine Turbid; Color Urine Yellow; Glucose Urine UA Negative (Negative); Leukocyte Esterase Urine Negative (Negative); Nitrite Urine Negative (Negative); Specific Gravity - Urine >= 1.030 (1.005-1.025); Urine Blood Negative (Negative); Urine Ketones 15 mg/dL (Negative); Urine Protein Negative (Neg-Trace)
[2024-06-24 10:20] LABS: Bacteria Urine None Seen (None Seen); Hyaline Casts Urine 0-2 /LPF (0-2); RBC Urine 0-2 /HPF (0-2); WBC Urine 0-5 /HPF (0-5)
[2024-06-24 10:28] LABS: MANUAL DIFF FLAG NO
[2024-06-24 10:44] LABS: Basophils Percent Auto 0.5 % (0-2); Eosinophils Absolute Auto 0.1 X10*3/uL (0.0-0.4); Eosinophils Percent Auto 1.3 % (0-4); Hematocrit 43.2 % (37.0-47.0); Hemoglobin 14.1 g/dl (12.0-16.0); Imm Gran Abs Auto 0.03 X10*3/uL (0.00-0.03); Imm Gran Pct Auto 0.4 % (0.0-0.4); Lymphocytes Absolute Auto 1.7 X10*3/uL (1.2-4.9); Lymphocytes Percent Auto 21.8 % (20-40); Mean Corpuscular HGB Conc 32.6 g/dl (31.0-35.0); Mean Corpuscular Hemoglobin 30.2 pg (27.0-33.0); Mean Corpuscular Volume 92.5 fL (80.0-98.0); Monocytes Absolute Auto 0.6 X10*3/uL (0.1-1.2); Monocytes Percent Auto 8.5 % (2-11); Neutrophils Absolute Auto 5.1 x10*3/uL (2.0-8.3); Neutrophils Percent Auto 67.5 % (45-73); Platelet Count 229 X10*3/uL (160-400); Red Blood Count 4.67 X10*6/uL (4.20-5.50); Red Cell Distribution Width 13.2 % (11.0-16.0); White Blood Count 7.6 X10*3/uL (4.8-10.8)
[2024-06-24 11:31] LABS: Alanine Aminotransferase 25 U/L (0-31); Albumin Level 4.1 g/dL (3.5-5.0); Alkaline Phosphatase 91 U/L (39-117); Anion Gap 14 (12-20); Aspartate Amino Transferase 23 U/L (5-31); Bilirubin Total 0.9 mg/dL (0.0-1.0); Blood Urea Nitrogen 15 mg/dL (9-16); Calcium 8.9 mg/dL (8.4-10.2); Carbon Dioxide 24 mmol/L (22-29); Chloride 106 mmol/L (96-108); Cholesterol 209 mg/dL (<200); Estimated Glomerular Filt Rate > 60; Glucose Fasting 105 mg/dL (60-99); HDL Cholesterol 49 mg/dL (>40); LDL Cholesterol Calculated 139 mg/dL (<100); Potassium 4.1 mmol/L (3.3-5.1); Sodium 140 mmol/L (135-145); TSH reflex Free T4 0.82 uIU/mL (0.32-4.0); Triglycerides 109 mg/dL (<150); Vitamin D 25-OH Total 36.4 ng/mL (>30)
== END 2024-06-24 06:27 | disposition home or self-care (01) ==
LOC: HO.HMGCLDS 06:26
PROVIDERS: PCP Internal Medicine; Visit Provider Internal Medicine
DX: D22.9 Melanocytic nevi, unspecified (principal); R32 Unspecified urinary incontinence
CPT/HCPCS: 36415; 80053; 80061; 81001; 82306; 84443; 85025

== ENCOUNTER 2024-09-04 07:15 | Outpatient (AMB) | payer MEDICARE, SELFPAY ==
--- OUTSIDE RECORDS SUMMARY | 2024-09-04 07:17 | XMS_ITS | Clinical Summary ---
Author Organization [facility] Address [address] [place] [address] Care Team Providers Care Consulting Psychiatrist Name Role Phone Deonna Wang MD Primary Care Provider [phone] Allergies Active Allergy Reactions Criticality Noted Date [...] Date Site/Laterality Comments OTHER SURGICAL HISTORY PROCEDURE: FL LIG/TRNSXJ FLP TUBE ABDL/VAG APPR UNI/BI MASTECTOMY PROCEDURE: HISTORICAL MASTECTOMY; COMMENT: Right, for breast CA, with subsequent reconstruction ESOPHAGOGASTRODUODENOSCOPY 05/14/07 PROCEDURE: FL EGD TRANSORAL BIOPSY SINGLE/MULTIPLE; COMMENT: Multiple gastric polyps, removed-fundic gland polyp. Nl SB-bx:suggestive of CELIAC disease ESOPHAGOGASTRODUODENOSCOPY 03/10/08 PROCEDURE: FL EGD TRANSORAL BIOPSY SINGLE/MULTIPLE; COMMENT: Small whitish plaques in the esophagus of unclear etiology-bx:Nl, Nl stomach, NL SB-bx:Nl (in view that she is on gluten free diet, suggest celiac disease) NECK SURGERY 06/26/14 PROCEDURE: HISTORICAL NECK SURGERY; COMMENT: Anterior cervical discectomy/arthrodesis C6-7, Dr. Reynaldo Ansari, [facility] [place] BREAST BIOPSY 2012 Left PROCEDURE: BX BREAST; PERC NEEDLE CORE W/IMAG GUID; COMMENT: b9 OTHER SURGICAL HISTORY 2000 Bilateral PROCEDURE: IMPLANT BREAST SILICONE/EQ BREAST SURGERY 2000 Bilateral PROCEDURE: FL UNLISTED PROCEDURE BREAST; COMMENT: Breast Implants BREAST SURGERY 1994si Right PROCEDURE: FL UNLISTED PROCEDURE BREAST; COMMENT: [email or web address] COLONOSCOPY 05/14/07 PROCEDURE: FL COLONOSCOPY STOMA DX INCLUDING COLLJ SPEC SPX; COMMENT: Up to cecum, good preparation, normal COLONOSCOPY 06/11/12 PROCEDURE: FL COLONOSCOPY STOMA W/RMVL ELA POLYP/OTH LES SNARE; COMMENT: L divertics, polyps @ desc, sigmoid, upper rectum, distal rectum -> snared, bx- descending, sigmoid polyps tubular adenomas. Rectal polyps equal hyperplastic COLONOSCOPY 04/27/17 [facility] PROCEDURE: HISTORICAL COLONOSCOPY; COMMENT: hemorrhoids and tics; repeat in 5 yrs under propofol BUNIONECTOMY 04/2020 Left PROCEDURE: BUNION SURGERY, SIMPLE REMOVAL; COMMENT: Dr. Foster José - [facility] Medical History Medical History Date Comments Kidney [...] age to complete this topic Meningococcal B Vaccine Aged Out No l onger eligible based on patient's age to complete [...] History: Routine screening. No current breast complaints. Personal history of right breast cancer status postmastectomy. [...] distortion identified. Stable typically benign parenchymal asymmetries. Intact implant IMPRESSION: : 1. No mammographic [...] Recently Relevant to Health Maintenance Care Teams Consulting Psychiatrist Relationship Specialty Start Date End Date Deonna Wang MD [address] [place] [address] PCP - General Internal Medicine 11/20/20
--- NOTE | 2024-09-04 07:27 | MHC.OFFVIS ---
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 No complaints. Last Pap/HPV was in 09/10 was negative Last Mammogram was BI-RADS 2 in 02/10 Last Colonoscopy was in 02/10, the recommendation was to repeat in 3-5 years Last DEXA scan was done in 06/10, the patient is on alendronate PFSH Medical History Hyperlipidemia Osteopenia Urge incontinence BRCA negative Left wrist fracture FH: mastectomy GERD (gastroesophageal reflux disease) Breast cancer Surgical History (Updated 09/04/24 @ 07:40 by Wayne Malone MD) Hx of hysterectomy Hx of spinal surgery H/O colonoscopy Kidney donor H/O mastectomy History of bunionectomy Family History Sister Diabetes Mother Colon cancer Social History Household Members: Spouse Housing: House Alcohol intake: current Alcohol intake frequency: holidays/special occasions only Patient Tobacco Use Status: Former Tobacco user Years Smoked: 40 e-Cigarette/Vaping Use: Never Used service: No Current occupational status: employed Current occupation: [employer] Sexual orientation: Straight/Heterosexual Gender identity: Female Cognitive needs: No Hearing needs: No Vision needs: Yes Female Reproductive History Menstrual Menopause type: surgical (Hysterectomy) Date of last pap smear: 08/30/23 History of abnormal pap smear: No Date of Mammogram: 02/01/24 Review of Systems Const All systems reviewed & are unremarkable except as noted in HPI and below Card Reports as per HPI Resp Reports as per HPI GI Reports as per HPI and Reports no additional complaints Reports as per HPI Physical Exam Vital Signs: BMI result Body Mass Index 27.3 Const General: cooperative, healthy appearing and comfortable Chest Chest palpation & inspection: normal inspection of the chest and normal palpation of entire chest wall Breast/axilla inspection: normal inspection of the breasts and normal inspection of the axillae Breast/axilla palpation: normal palpation of the breasts, normal palpation of the axillae and no axillary lymphadenopathy Resp Effort & Inspection: normal respiratory effort Auscultation: clear to auscultation bilaterally Percussion: percussion normal Cardio Palpation: normal PMI Rate: regular rate Rhythm: regular rhythm Heart sounds: no murmurs and no rubs Peripheral pulses: Peripheral pulses 2+ throughout GI Inspection: Yes normal to inspection Palpation (GI): Soft to palpation, nontender, no guarding, not rigid and No hepatosplenomegaly present Percussion: Yes normal to percussion Auscultation: normal bowel sounds Rectal Exam - Female: deferred General: Yes bladder normal to palpation External Female Exam: No lesion Speculum Exam - Vagina: normal appearance of the vagina, normal palpation, normal vaginal discharge and not erythematous Speculum Exam - Cervix: Cervix absent Bimanual exam- vagina & uterus: normal bimanual exam, normal palpation, bladder normal to palpation and uterus absent Bimanual Exam- Adnexa, other: Other (No pelvic masses) Assessment & Plan Assessment & Plan (1) Well woman exam: Code(s): Z01.419 - Encounter for gynecological examination (general) (routine) without abnormal findings Category: Medical Plan: Co testing not indicated Counseled the patient about the recommended dietary allowance of 1200 mg of Calcium & 800 IU of vitamin D. Instructions given the patient to schedule next screening Mammogram in 02/11. The patient was instructed to perform monthly self-breast exams and to schedule an annual exam in a year; All questions answered and the patient verbalized understanding. Coding Level of Care Code Est Pt Prev Care >65y(56413) Diagnoses Well woman exam Z01.419
[2024-09-04 07:28] VITALS: BMI 27.3
== END 2024-09-04 07:53 | disposition home or self-care (01) ==
LOC: HO.HWS 07:15
PROVIDERS: PCP Internal Medicine; Visit Provider Obstetrics & Gynecology
DX: Z01.419 Encounter for gynecological examination (general) (routine) without abnormal findings (principal)
CPT/HCPCS: 99397; 99459

== ENCOUNTER → 2024-09-04 07:15 | Outpatient (BNVA) | payer MEDICARE, SELFPAY | PROVIDERS: PCP Internal Medicine; Visit Provider Obstetrics & Gynecology | DX: Z01.419 Encounter for gynecological examination (general) (routine) without abnormal findings (principal) | CPT/HCPCS: 99397 ==

== ENCOUNTER 2025-02-03 15:47 | Outpatient (REF) | payer MEDICARE, SELFPAY ==
--- NOTE | ~2025-02-03 | MM_ITS ---
EXAMINATION: MM SCREENING DIGITAL BREAST TOMOSYNTHESIS, LEFT CLINICAL INFORMATION: Screening. Asymptomatic. Right mastectomy. COMPARISON: Mammography: Comparison is made with available priors TECHNIQUE: Digital breast mammography with tomosynthesis is performed in both the craniocaudal and mediolateral oblique views along with computer-aided detection (CAD). FINDINGS: There are scattered areas of fibroglandular density. Retropectoral implant is stable appearing. Marker clip. There are no significant masses, abnormal calcifications, or other abnormalities. MM/MM tomosynthesis screen imp LT IMPRESSION: No mammographic evidence of malignancy. ASSESSMENT: BI-RADS Category 2: Benign RECOMMENDATION: Routine annual mammography screening. 1 year F/U This examination should not preclude the clinical evaluation of a suspicious palpable abnormality. This patient's information was entered into a reminder system with a target due date for their next mammogram. Electronically signed by: Katerina Paul DO 02/07/2025 08:39 AM [facility]
--- OUTSIDE RECORDS SUMMARY | 2025-02-04 06:27 | XMS_ITS | Clinical Summary ---
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 Reynaldo Ansari, [facility] BREAST BIOPSY 2012 Left PROCEDURE: BX BREAST; [...] Dr. Foster José - [facility] Medical History Medical History Date Comments Kidney [...] Years Used Date Smoking Tobacco: Former Cigarettes 1 Q uit: 04/08/2018 Smokeless Tobacco: Never Alcohol [...] Health Maintenance Due Date Last Done Comments Zoster Vaccines (1 of 2) 1976 Pneumococcal Vaccine: 50+ Years (1 of 1 - PCV) 11/24/2007 COVID-19 Vaccine (3 - Moderna risk series) 07/30/2020 07/02/2020, 06/04/2020 Colorectal Cancer Screening: Colonoscopy 02/26/2022 Hepatitis C Screening 02/26/2022 Osteoporosis Screening (Bone Density Screening) 02/26/2022 Social Influencers of Health Screening 02/26/2022 Falls Risk Assessment 2022 Breast Cancer Screening 01/22/2024 01/22/20 23, 01/15/2022, 01/09/2021, Additional history exists DTaP,Tdap,and Td Vaccines (2 - Td or Tdap) 02/07/2024 02/06/2014 Depression Screening 03/20/2024 Cholesterol Screening (Lipid Panel) 04/02/2024 04/02/2019 Influenza Vaccine (#1) 2024 0, 01/17/2018, 05/25/2016, Additional history exists RSV Immunization [...] Recently Relevant to Health Maintenance Care Teams Oyster Harvester Relationship Specialty Start Date End Date Deonna Wang MD [address] [place] [address] PCP - General Internal Medicine 11/20/20
== END 2025-02-03 15:48 | disposition home or self-care (01) ==
LOC: HO.MAMMO 15:47
PROVIDERS: PCP Internal Medicine; Visit Provider Internal Medicine
DX: Z12.31 Encounter for screening mammogram for malignant neoplasm of breast (principal); Z90.11 Acquired absence of right breast and nipple
CPT/HCPCS: 77067

== ENCOUNTER → 2025-02-03 15:59 | Outpatient (BNV) | payer MEDICARE, SELFPAY | PROVIDERS: PCP Internal Medicine; Visit Provider Internal Medicine | DX: Z12.31 Encounter for screening mammogram for malignant neoplasm of breast (principal) | CPT/HCPCS: 77063; 77067 ==